=== PATIENT | female | born 1995 | race Caucasian/White ===

== ENCOUNTER → 2019-08-26 11:56 | Outpatient (BNVA) | payer SELFPAY | PROVIDERS: Family Provider Pediatrics Adolescent Medicine; PCP Pediatrics Adolescent Medicine; Visit Provider Nurse Practitioner Family | DX: N39.0 Urinary tract infection, site not specified (principal); R11.2 Nausea with vomiting, unspecified; Z68.41 Body mass index [BMI] 40.0-44.9, adult; F17.210 Nicotine dependence, cigarettes, uncomplicated; Z71.89 Other specified counseling | CPT/HCPCS: 81000; 81025 ==

== ENCOUNTER → 2019-10-02 09:15 | Outpatient (BNVA) | payer SELFPAY | PROVIDERS: Family Provider Pediatrics Adolescent Medicine; PCP Pediatrics Adolescent Medicine; Visit Provider Nurse Practitioner Women's Health | DX: Z11.3 Encounter for screening for infections with a predominantly sexual mode of transmission (principal) | CPT/HCPCS: 87491; 87591; 87661 ==

== ENCOUNTER 2019-12-18 06:43 | Emergency (ER) | payer SELFPAY ==
[2019-12-18 06:48] VITALS: BP 115/90; PULSE 96; RESP 16; TEMP 35.7; O2SAT 100; BMI 38.9
--- NOTE | 2019-12-18 07:01 | ED_ITS ---
HPI - Nausea/Vomiting/Diarrhea General: Chief complaint: Nausea/Vomiting/Diarrhea Stated complaint: n/v/d Time Seen by Provider: 12/18/19 06:58 History of Present Illness: HPI Narrative: 24-year-old female comes in complaining of nausea and vomiting that began last night. She denies any hematochezia or melena. She did take some Imodium that seemed to help but she has not had events like this before she is not really noted anything that seems to trigger her or relieve it besides the Imodium. The diarrhea has slowed down since taking the Imodium but the nausea still persisting. She has some generalized abdominal discomfort but no severe pain. She has not noted any acholic stools or bilious vomiting. MD elicited complaint: nausea, vomiting and diarrhea Onset (ago): hour(s) Description of vomiting: watery Description of diarrhea: watery Associated nausea: Yes Associated abdominal pain: Yes Location of pain: Diffuse Radiation: diffuse Pain consistency: intermittent Severity: moderate Quality: cramping Exacerbating factors: none Relieving factors: none Associated symtoms: Reports bloating, anorexia, malaise, myalgias, nausea and weakness; Denies change in vision, chest pain, cough, diaphoresis, decreased urine output, dizziness, dysuria, epistaxis, fatigue, fecal incontinence, fevers/chills, headache(s), numbness, palpitations, rash, short of breath, syncope or tinnitus Treatment prior to arrival: immodium Review of Systems Const: Reports: malaise; Denies: fatigue or diaphoresis Eyes: Denies: change in vision ENMT: Denies: tinnitus or epistaxis Card: Denies: chest pain, palpitations or syncope Resp: Denies: dyspnea, productive cough or non-productive cough GI: Reports: nausea and bloating; Denies: fecal incontinence : Denies: dysuria Skin/Breast: Denies: rash or pruritus Neuro: Denies: headache(s) or dizziness PFSH ED PFSH: Medical History Gastroesophageal reflux disease 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--> referred to [facility] for tx Surgical History H/O wisdom tooth extraction (~09/2019) History of tonsillectomy and adenoidectomy in 3rd grade- Performed at [facility] in [place], [place] Family History Grandmother Diabetes Heart disease Maternal grandmother Grandfather Diabetes Denies family history of Colon cancer Ovarian cancer Hyperlipidemia Breast cancer Family history of thyroid problem Hypertension Uterine cancer Stroke Social History Additional social history: - Tobacco use: Current daily smoker; 1pk daily Alcohol use: Social Drug use: Denies Female Reproductive History: Date of last menstrual period: 12/04/19 Physical Exam Const: COMMON NORMALS: no acute distress GENERAL APPEARANCE: cooperative and comfortable ORIENTATION/CONSCIOUSNESS: Yes awake, Yes oriented to person, Yes oriented to place and Yes oriented to time HENMT: COMMON NORMALS: normocephalic, atraumatic and hearing grossly normal bilaterally HEAD & SCALP: normocephalic and atraumatic Eye: COMMON NORMALS: Equal, round and reactive pupils present, EOMs intact bilaterally, conjunctivae normal and no scleral icterus CONJUNCTIVA: Yes conjunctivae normal PUPIL: Yes Equal, round and reactive pupils present Neck/C-Spine: COMMON NORMALS: no JVD Resp: COMMON NORMALS: normal respiratory effort, No retractions, No use of accessory muscles and clear to auscultation bilaterally AUSCULTATION: clear to auscultation bilaterally Cardio: COMMON NORMALS: no JVD, regular rate, regular rhythm and No murmurs present (Cardio) RATE: regular rate RHYTHM: regular rhythm GI: COMMON NORMALS: Soft to palpation and No hepatosplenomegaly present AUSCULTATION: Yes normoactive bowel sounds PALPATION: Yes Soft to palpation, Yes Tenderness to palpation present (GI) (Mild diffuse tenderness), No Guarding due to palpation present (GI) and Yes No hepatosplenomegaly present Extremity: COMMON NORMALS: normal to inspection, capillary refill normal, no clubbing, cyanosis or edema, no calf tenderness and no pedal edema Neuro: SENSORIUM/ORIENTATION: Yes oriented to person, Yes oriented to place a nd Yes oriented to time Skin: COMMON NORMALS: no rashes or lesions noted GENERAL SKIN EXAM: no rashes or lesions noted Course Vital Signs: Vital signs: Vital Signs Temperature 96.3 F L 12/18/19 06:48 Pulse Rate 75 12/18/19 08:18 Respiratory Rate 16 12/18/19 08:18 Blood Pressure 145/70 12/18/19 08:18 Pulse Oximetry 100 12/18/19 08:18 MDM - Nausea/Vomiting/Diarrhea MDM Narrative: Medical decision making narrative: She is feeling better. We will go ahead and discharge her home clear liquid diet for 48 hours and advance as needed she can continue to use Imodium as needed and Zofran if has worsening or changes symptoms return. Lab Data: Labs: Lab Results 12/18/19 12/18/19 12/18/19 Range/Units 07:22 07:22 07:22 WBC 8.5 (4.0-10.0) 10^3/ uL RBC 4.59 (4.1-5.3) 10^6/u L Hgb 13.8 (11.5-15.3) g/dL Hct 42.9 (37.0-47.0) % MCV 93.5 (81-99) fL MCH 30.1 (28.0-34.0) pg MCHC 32.2 (30.0-36.0) g/dL RDW 11.9 L (12.1-15.1) % Plt Count 350 (130-400) 10^3/c mm MPV 10.1 (7.4-10.4) fL Neut % (Auto) 37.9 % Lymph % (Auto) 52.4 % [place]oughton % (Auto) 6.6 % Eos % (Auto) 2.4 % Baso % (Auto) 0.6 % Neut # (Auto) 3.22 (1.8-7.7) 10^3/u L Lymph # (Auto) 4.4 (0.8-4.8) 10^3/u L Houghton # (Auto) 0.6 (0.2-0.9) 10^3/u L Eos # (Auto) 0.2 (0.0-0.8) 10^3/u L Baso # (Auto) 0.1 (0.0-0.1) 10^3/u L Nucleated RBC % (a uto) 0 % Nucleated RBCs # 0.0 /100WBC Sodium 139 (136-145) mmol/L Potassium 4.1 (3.5-5.1) mmol/L Chloride 104 (98-107) mmol/L Carbon Dioxide 25 (22-29) mmol/L Anion Gap 14.1 (5-19) BUN 13 (6-20) mg/dL Creatinine 0.7 (0.5-0.9) mg/dL GFR Calculation 103.7 (90-130) mL/min Glucose 96 (65-115) mg/dL Calculated Osmolal ity 284 L (285-295) mOsm/k g Calcium 8.8 (8.5-10.5) mg/dL Magnesium 2.0 (1.7-2.3) mg/dL Total Bilirubin 0.8 (0.15-1.2) mg/dL AST 17 (0-32) U/L ALT 20 (0-33) U/L Alkaline Phosphata se 78 (35-105) IU/L Total Protein 7.2 (6.6-8.7) g/dL Albumin 4.0 (3.5-5.2) g/dL Globulin 3.2 (1.3-4.6) g/dL Lipase 19 (13-60) U/L HCG, Qual (Negative) Urine Color Yellow (Yellow) Urine Appearance Sl hazy (CLEAR) Urine pH 6 (5-7) Ur Specific Gravit y 1.020 (1.005-1.030) Urine Protein Neg (Negative) Urine Glucose (UA) Norm (Normal) Urine Ketones Negative (Negative) Urine Blood Neg (Negative) Urine Nitrate Negative (Negative) Urine Bilirubin Neg (NEGATIVE) Urine Urobilinogen Norm (Negative) mg/dL Ur Leukocyte Tere ase Negative (Negative) Urine RBC None (0-2) /hpf Urine WBC None (0-5) /hpf Ur Squamous Epith Cells 10-15 H (0-5) Amorphous Sediment Not Reportable Urine Bacteria Trace (NONE) 12/18/19 Range/Units 07:22 WBC (4.0-10.0) 10^3/ uL RBC (4.1-5.3) 10^6/u L Hgb (11.5-15.3) g/dL Hct (37.0-47.0) % MCV (81-99) fL MCH (28.0-34.0) pg MCHC (30.0-36.0) g/dL RDW (12.1-15.1) % Plt Count (130-400) 10^3/c mm MPV (7.4-10.4) fL Neut % (Auto) % Lymph % (Auto) % Houghton % (Auto) % Eos % (Auto) % Baso % (Auto) % Neut # (Auto) (1.8-7.7) 10^3/u L Lymph # (Auto) (0.8-4.8) 10^3/u L Houghton # (Auto) (0.2-0.9) 10^3/u L Eos # (Auto) (0.0-0.8) 10^3/u L Baso # (Auto) (0.0-0.1) 10^3/u L Nucleated RBC % (a uto) % Nucleated RBCs # /100WBC Sodium (136-145) mmol/L Potassium (3.5-5.1) mmol/L Chloride (98-107) mmol/L Carbon Dioxide (22-29) mmol/L Anion Gap (5-19) BUN (6-20) mg/dL Creatinine (0.5-0.9) mg/dL GFR Calculation (90-130) mL/min Glucose (65-115) mg/dL Calculated Osmolal ity (285-295) mOsm/k g Calcium (8.5-10.5) mg/dL Magnesium (1.7-2.3) mg/dL Total Bilirubin (0.15-1.2) mg/dL AST (0-32) U/L ALT (0-33) U/L Alkaline Phosphata se (35-105) IU/L Total Protein (6.6-8.7) g/dL Albumin (3.5-5.2) g/dL Globulin (1.3-4.6) g/dL Lipase (13-60) U/L HCG, Qual Negative (Negative) Urine Color (Yellow) Urine Appearance (CLEAR) Urine pH (5-7) Ur Specific Gravit y (1.005-1.030) Urine Protein (Negative) Urine Glucose (UA) (Normal) Urine Ketones (Negative) Urine Blood (Negative) Urine Nitrate (Negative) Urine Bilirubin (NEGATIVE) Urine Urobilinogen (Negative) mg/dL Ur Leukocyte Tere ase (Negative) Urine RBC (0-2) /hpf Urine WBC (0-5) /hpf Ur Squamous Epith Cells (0-5) Amorphous Sediment Urine Bacteria (NONE) Discharge Plan Discharge Patient Disposition: Home Clinical Impression: Gastroenteritis Condition: Stable Prescriptions: New Zofran 4 mg tablet 4 mg PO Q6H PRN (Reason: nausea and vomiting) Qty: 20 RF: 0 No Action hydrocodone-acetaminophen 7.5-325 mg tablet 1 tab PO BID PRNRF: 0 Cherie 14 mcg/24 hrs (3 yrs) 13.5 mg intrauterine device INTRAUTERI RF: 0 metronidazole 500 mg tablet 500 mg PO BID Qty: 14 RF: 0 Discharge Orders: Discharge Order (Routine); Ordered 12/18/19 Ordered By: Michael Jackson Referrals: Florencio Small Jr, MD [Primary Care Provider] - Discharge Diet: Clear Liquid Discharge Activity: Resume usual activity Activity Restrictions/Additional Instructions: Clear liquid diet x48 hours and advance to regular diet. Continue to use Imodium [id number] as needed as well as the ondansetron as needed Discharge Date/Time: 12/18/19 08:19 Coding Level of Care Code ED Glaciologist for Chg Fwd Exam Comprehensive
--- NOTE | 2019-12-18 07:02 | XR_ITS ---
WS: [id number] CHEST XRAY TECHNIQUE: Portable chest. CLINICAL INFORMATION: dyspnea/cough COMPARISON: August 14, 2011 FINDINGS: Heart: Normal cardiac silhouette. Lungs: Lungs are clear. No consolidation or pleural effusion. Bones: Normal visualized bony structures. XR/XR chest 1V portable [id number] IMPRESSION: Normal chest
--- NOTE | 2019-12-18 07:02 | ECG_ITS ---
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 Measurements Intervals [place] Rate: 87 P: 41 AK: 153 QRS: 46 QRSD: 88 T: 57 QT: 341 QTc: 412 Interpretive Statements SINUS RHYTHM POSSIBLE RIGHT VENTRICULAR CONDUCTION DELAY [RSR (QR) IN V1/V2] No previous ECG available for comparison Electronically Signed On 12-18-2019 17:09:18 CDT by Cinda Sosa M.D. [email or web address] centerOrsus Solutionskettering health miamisburgBlack Hammer Brewing/store/NU/[id number]/[id number] f
[2019-12-18 07:27] LABS: Basophils # 0.1 10^3/uL (0.0-0.1); Basophils % 0.6 %; Eosinophils # 0.2 10^3/uL (0.0-0.8); Eosinophils % 2.4 %; Hematocrit 42.9 % (37.0-47.0); Hemoglobin 13.8 g/dL (11.5-15.3); Lymphocytes # 4.4 10^3/uL (0.8-4.8); Lymphocytes % 52.4 %; Mean Corpuscular HGB Conc 32.2 g/dL (30.0-36.0); Mean Corpuscular Hemoglobin 30.1 pg (28.0-34.0); Mean Corpuscular Volume 93.5 fL (81-99); Mean Platelet Volume 10.1 fL (7.4-10.4); Monocytes # 0.6 10^3/uL (0.2-0.9); Monocytes % 6.6 %; Neutrophils # 3.22 10^3/uL (1.8-7.7); Neutrophils % 37.9 %; Nucleated Red Blood Cells % 0 %; Platelet Count 350 10^3/cmm (130-400); Red Blood Count 4.59 10^6/uL (4.1-5.3); Red Cell Distribution Width 11.9 % (12.1-15.1); White Blood Count 8.5 10^3/uL (4.0-10.0)
[2019-12-18] MEDS: sodium chloride 0.9% 1,000 ML 999 ML IV (07:30)
[2019-12-18] MEDS: ondansetron 2 mg/ML SDV 2 mL 4 MG IVP (07:30)
[2019-12-18 07:44] LABS: Alanine Aminotransferase 20 U/L (0-33); Alkaline Phosphatase 78 IU/L (35-105); Anion Gap 14.1 (5-19); Aspartate Amino Transferase 17 U/L (0-32); Blood Urea Nitrogen 13 mg/dL (6-20); Calcium 8.8 mg/dL (8.5-10.5); Carbon Dioxide 25 mmol/L (22-29); Chloride 104 mmol/L (98-107); Globulin 3.2 g/dL (1.3-4.6); Glomerular Filtration Rate 103.7 mL/min (90-130); Glucose 96 mg/dL (65-115); Lipase 19 U/L (13-60); Osmolality Calculated 284 mOsm/kg (285-295); Potassium 4.1 mmol/L (3.5-5.1); Sodium 139 mmol/L (136-145); Total Bilirubin 0.8 mg/dL (0.15-1.2); Total Protein 7.2 g/dL (6.6-8.7)
[2019-12-18 07:55] LABS: Add Urine Microscopic? YES; Bilirubin Urine Neg (NEGATIVE); Blood Urine Neg (Negative); Glucose Urine UA Norm (Normal); Ketones Urine Negative (Negative); Leukocyte Esterase Urine Negative (Negative); Nitrate Urine Negative (Negative); Protein Urine Neg (Negative); Urine Appearance SL Hazy (CLEAR); Urine Color Yellow (Yellow); Urobilinogen Urine Norm (Negative); pH Urine 6 (5-7)
[2019-12-18 07:56] LABS: Add Urine Culture? No; Bacteria Urine TRACE
[2019-12-18 07:58] LABS: HCG Qualitative Urine. Negative (Negative)
[2019-12-18 08:18] VITALS: BP 145/70; PULSE 75; RESP 16; O2SAT 100
--- NOTE | 2019-12-18 08:20 | PC.NURSE ---
Read and agree with assessment
== END 2019-12-18 08:19 | disposition home or self-care (01) ==
PROVIDERS: Emergency Provider Family Medicine; PCP Pediatrics Adolescent Medicine
DX: K52.9 Noninfective gastroenteritis and colitis, unspecified (principal); F17.210 Nicotine dependence, cigarettes, uncomplicated
CPT/HCPCS: 12345; 71045; 80053; 81001; 81025; 83690; 83735; 85025; 93005; 96361; 96374; 99283; 99284; J2405; J7030

== ENCOUNTER → 2020-01-08 10:47 | Outpatient (BNVA) | payer SELFPAY | PROVIDERS: PCP Pediatrics Adolescent Medicine; Visit Provider Nurse Practitioner Women's Health | DX: A59.9 Trichomoniasis, unspecified (principal); Z30.013 Encounter for initial prescription of injectable contraceptive | CPT/HCPCS: 81025; 87661 ==

== ENCOUNTER → 2020-03-11 14:31 | Outpatient (BNVA) | payer SELFPAY | PROVIDERS: PCP Pediatrics Adolescent Medicine; Visit Provider Nurse Practitioner Family | DX: R11.2 Nausea with vomiting, unspecified (principal); K52.9 Noninfective gastroenteritis and colitis, unspecified; R01.1 Cardiac murmur, unspecified | CPT/HCPCS: 81000; 81025 ==

== ENCOUNTER 2020-03-16 19:09 | Emergency (ER) | payer SELFPAY ==
[2020-03-16 19:18] VITALS: BP 138/92; PULSE 123; RESP 18; TEMP 37.2; O2SAT 99; BMI 40.2
[2020-03-16 20:09] VITALS: BP 144/90; PULSE 107; RESP 18; O2SAT 99
--- NOTE | 2020-03-16 20:10 | W.ED.ABDPA2 ---
HPI - Abdominal Pain General: Chief Complaint: Abdominal Pain Stated Complaint: ab pain Time Seen by Provider: 03/16/20 20:09 History of Present Illness: HPI narrative: Patient is a 24-year-old female comes to the ED with abdominal pain. Patient says symptoms started last night and woke her up in the middle the night. Pain is located in the right lower quadrant of the abdomen and it radiates to her back. She rates the pain currently a 7 out of 10 and she says putting pressure on the area helps with the pain but when she lets up it hurts. She had some nausea today but no episodes of emesis. She says she has not had a bowel movement in the last 24 to 48 hours. Denies diarrhea, constipation, fever, chills. Patient does endorse having some dysuria couple days ago but it has since resolved in the past 24 hours. Associated Symptoms: Reports change in bowel habits (Has not had a bowel movement in the past 24 to 48 hours.), dysuria (Had some dysuria couple days ago but it has since resolved.) and nausea; Denies chills, constipation, diarrhea, fever(s), hematochezia, hematuria and vomiting Related Data: Date of Last Menstrual Period: 12/04/19 Review of Systems Const: Denies: fever(s), chills or fatigue Eyes: Denies: change in vision or eye discomfort ENMT: Denies: throat pain, odynophagia, nasal discharge or nasal congestion Card: Denies: chest pain, palpitations, edema, swelling of feet/ankles, dyspnea on exertion or orthopnea Resp: Denies: dyspnea, productive cough or non-productive cough GI: Reports: abdominal pain (RLQ pain), nausea and change in bowel habits (Has not had a bowel movement in the past 24 to 48 hours.); Denies: vomiting, diarrhea, constipation or hematochezia : Reports: dysuria (Had some dysuria couple days ago but it has since resolved.); Denies: flank pain or hematuria Musc: Denies: neck pain, back pain or extremity swelling Skin/Breast: Denies: rash or new lesions Neuro: Denies: headache(s), numbness in extremities or weakness in extremities PFS ED PFSH: Medical History Gastroesophageal reflux disease 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--> referred to [facility] for tx Surgical History H/O wisdom tooth extraction (~09/2019) History of tonsillectomy and adenoidectomy in 3rd grade- Performed at [facility] in [place], [place] Family History Grandmother Diabetes Heart disease Maternal grandmother Grandfather Diabetes Denies family history of Colon cancer Ovarian cancer Hyperlipidemia Breast cancer Family history of thyroid problem Hypertension Uterine cancer Stroke Social History Additional social history: - Tobacco use: Current daily smoker; 1pk daily Alcohol use: Social Drug use: Denies Female Reproductive History: Date of last menstrual period: 12/04/19 Physical Exam Const: COMMON NORMALS: no acute distress, patient oriented x3 and alert GENERAL APPEARANCE: cooperative and comfortable HENMT: COMMON NORMALS: normocephalic HEAD & SCALP: normocephalic MOUTH: Normal oral and palatal mucosa present THROAT: posterior oropharynx normal and uvula midline Eye: COMMON NORMALS: Equal, round and reactive pupils present PUPIL: Yes Equal, round and reactive pupils present Neck/C-Spine: COMMON NORMALS: supple GENERAL: Yes normal visual inspection Resp: COMMON NORMALS: normal respiratory effort, No retractions, No use of accessory muscles and clear to auscultation bilaterally AUSCULTATION: clear to auscultation bilaterally Cardio: COMMON NORMALS: regular rate, regular rhythm, S1 normal heart sound present, S2 normal heart sound present, No gallops present (Cardio), No clicks present (Cardio), No murmurs present (Cardio) and Peripheral pulses 2+ throughout RATE: regular rate RHYTHM: regular rhythm HEART SOUNDS: S1 normal heart sound present and S2 normal heart sound present PERIPHERAL PULSES: Peripheral pulses 2+ throughout GI: COMMON NORMALS: Normal to inspection, nondistended, normoactive bowel sounds present, Soft to palpation and no masses INSPECTION: Yes central obesity PALPATION: Yes Soft to palpation and Yes Tenderness to palpation present (GI) Details: RLQ (Mild tenderness upon deep palpation right lower quadrant. She does have rebound tenderness.) : BLADDER/KIDNEY EXAM: Yes CVA tenderness on the right Back/Pelvis: GENERAL BACK: Yes CVA tenderness CVA tenderness: right Extremity: COMMON NORMALS: normal to inspection and no pedal edema Neuro: COMMON NORMALS: patient oriented x3 SENSORIUM/ORIENTATION: Yes alert GAIT: Yes Normal gait present Skin: GENERAL SKIN EXAM: dry skin Course Vital Signs: Vital signs: Vital Signs Temperature 98.5 F 03/16/20 23:04 Pulse Rate 104 H 03/16/20 23:04 Respiratory Rate 17 03/16/20 23:04 Blood Pressure 119/80 03/16/20 23:04 Pulse Oximetry 98 03/16/20 23:04 MDM - Abdominal Pain MDM Narrative: Medical decision making narrative: Patient is a 24-year-old female comes to the ED with right lower quadrant abdominal pain. Patient also says she had some dysuria couple days ago but it resolved about 24 hours ago. Patient appears in no acute distress or pain. She is right lower quadrant tenderness with some rebound tenderness in the right lower quadrant. Right CVA tenderness. White blood cell count 12.7 and the rest of CBC and CMP were unremarkable. hCG negative and lipase 15. UA shows some RBCs, WBCs and bacteria indicating UTI. CT of abdomen showed pyelonephritis of right kidney. Patient was given IV fluids, Zofran and morphine while here in the ED. Vitals stable and patient would be a good candidate for outpatient treatment. She is also given a dose of Rocephin. She was diagnosed with pyelonephritis and discharged with a prescription of levofloxacin and Zofran. Return to ED precautions given. She was told to follow-up with her PCP in 7 to 10 days for reevaluation. Patient understood agree with plan. Lab Data: Attestation: I reviewed the patient's lab results. Labs: Lab Results 03/16/20 03/16/20 03/16/20 Range/Units 19:45 20:00 20:00 WBC 12.7 H (4.0-10.0) 10^3/ uL RBC 4.62 (4.1-5.3) 10^6/u L Hgb 14.0 (11.5-15.3) g/dL Hct 42.2 (37.0-47.0) % MCV 91.3 (81-99) fL MCH 30.3 (28.0-34.0) pg MCHC 33.2 (30.0-36.0) g/dL RDW 12.4 (12.1-15.1) % Plt Count 311 (130-400) 10^3/c mm MPV 11.3 H (7.4-10.4) fL Neut % (Auto) 57.5 % Lymph % (Auto) 30.6 % Turner % (Auto) 9.6 % Eos % (Auto) 1.8 % Baso % (Auto) 0.3 % Neut # (Auto) 7.28 (1.8-7.7) 10^3/u L Lymph # (Auto) 3.9 (0.8-4.8) 10^3/u L Turner # (Auto) 1.2 H (0.2-0.9) 10^3/u L Eos # (Auto) 0.2 (0.0-0.8) 10^3/u L Baso # (Auto) 0.0 (0.0-0.1) 10^3/u L Nucleated RBC % (a uto) 0 % Nucleated RBCs # 0.0 /100WBC Sodium 139 (136-145) mmol/L Potassium 3.8 (3.5-5.1) mmol/L Chloride 103 (98-107) mmol/L Carbon Dioxide 25 (22-29) mmol/L Anion Gap 14.8 (5-19) BUN 9 (6-20) mg/dL Creatinine 0.7 (0.5-0.9) mg/dL GFR Calculation 103.7 (90-130) mL/min Glucose 94 (65-115) mg/dL Calculated Osmolal ity 286 (285-295) mOsm/k g Calcium 9.3 (8.5-10.5) mg/dL Total Bilirubin 0.5 (0.15-1.2) mg/dL AST 14 (0-32) U/L ALT 11 (0-33) U/L Alkaline Phosphata se 86 (35-105) IU/L Total Protein 7.6 (6.6-8.7) g/dL Albumin 4.0 (3.5-5.2) g/dL Globulin 3.6 (1.3-4.6) g/dL Lipase 15 (13-60) U/L HCG, Qual (Negative) Urine Color Yellow (Yellow) Urine Appearance Cloudy (CLEAR) Urine pH 5 (5-7) Ur Specific Gravit y 1.025 (1.005-1.030) Urine Protein Trace (Negative) Urine Glucose (UA) Norm (Normal) Urine Ketones 1+ H (Negative) Urine Blood Neg (Negative) Urine Nitrate Negative (Negative) Urine Bilirubin Neg (Negative) Urine Urobilinogen Norm (Negative) mg/dL Ur Leukocyte Tere ase 2+ H (Negative) Urine RBC 0-4 H (0-2) /hpf Urine WBC 5-10 H (0-5) /hpf Ur Squamous Epith Cells 10-15 H (0-5) /hpf Amorphous Sediment 1+ /hpf Urine Bacteria 1+ H (NONE) /hpf 03/16/20 Range/Units 20:00 WBC (4.0-10.0) 10^3/ uL RBC (4.1-5.3) 10^6/u L Hgb (11.5-15.3) g/dL Hct (37.0-47.0) % MCV (81-99) fL MCH (28.0-34.0) pg MCHC (30.0-36.0) g/dL RDW (12.1-15.1) % Plt Count (130-400) 10^3/c mm MPV (7.4-10.4) fL Neut % (Auto) % Lymph % (Auto) % Turner % (Auto) % Eos % (Auto) % Baso % (Auto) % Neut # (Auto) (1.8-7.7) 10^3/u L Lymph # (Auto) (0.8-4.8) 10^3/u L Turner # (Auto) (0.2-0.9) 10^3/u L Eos # (Auto) (0.0-0.8) 10^3/u L Baso # (Auto) (0.0-0.1) 10^3/u L Nucleated RBC % (a uto) % Nucleated RBCs # /100WBC Sodium (136-145) mmol/L Potassium (3.5-5.1) mmol/L Chloride (98-107) mmol/L Carbon Dioxide (22-29) mmol/L Anion Gap (5-19) BUN (6-20) mg/dL Creatinine (0.5-0.9) mg/dL GFR Calculation (90-130) mL/min Glucose (65-115) mg/dL Calculated Osmolal ity (285-295) mOsm/k g Calcium (8.5-10.5) mg/dL Total Bilirubin (0.15-1.2) mg/dL AST (0-32) U/L ALT (0-33) U/L Alkaline Phosphata se (35-105) IU/L Total Protein (6.6-8.7) g/dL Albumin (3.5-5.2) g/dL Globulin (1.3-4.6) g/dL Lipase (13-60) U/L HCG, Qual Negative (Negative) Urine Color (Yellow) Urine Appearance (CLEAR) Urine pH (5-7) Ur Specific Gravit y (1.005-1.030) Urine Protein (Negative) Urine Glucose (UA) (Normal) Urine Ketones (Negative) Urine Blood (Negative) Urine Nitrate (Negative) Urine Bilirubin (Negative) Urine Urobilinogen (Negative) mg/dL Ur Leukocyte Tere ase (Negative) Urine RBC (0-2) /hpf Urine WBC (0-5) /hpf Ur Squamous Epith Cells (0-5) /hpf Amorphous Sediment /hpf Urine Bacteria (NONE) /hpf Imaging Data ^: CT Abd/Pel: Attestation: I personally reviewed and interpreted this imaging study as follows: Radiologist's impression: [address] [address] [address] Scan Report Signed Patient: Diamond Hagan Unit #: [id number] : 1995 Age/Sex: 24 / F ADM Date: 03/16/20 Loc: ER Room/Bed: Attending Dr: Ordering Provider/Ordering MD: Keven Almaraz Date of Service: 03/16/20 Procedure(s): CT abdomen pelvis w con* [id number] Accession Number(s): [id number] Report Number: [id number] PROCEDURE INFORMATION: Exam: CT Abdomen And Pelvis With Contrast Exam date and time: 03/16/2020 9:01 PM Age: 24 years old Clinical indication: Abdominal pain; Localized; Right lower quadrant (rlq); Patient HX: C/O rlq pain TECHNIQUE: Imaging protocol: Computed tomography of the abdomen and pelvis with intravenous contrast. Radiation optimization: All CT scans at this facility use at least one of these dose optimization techniques: automated exposure control; mA and/or kV adjustment per patient size (includes targeted exams where dose is matched to clinical indication); or iterative reconstruction. Contrast material: OMNI 300; Contrast volume: 95 ml; Contrast route: INTRAVENOUS (IV); COMPARISON: CT abdomen pelvis w con* [id number] 12/26/2014 2:45 PM RADIATION DOSE METRICS: Total DLP (mGy-cm): 1648.08 FINDINGS: Liver: Normal. No mass. Gallbladder and bile ducts: Normal. No calcified stones. No ductal dilation. Pancreas: Normal. No ductal dilation. Spleen: Normal. No splenomegaly. Adrenal glands: Normal. No mass. Kidneys and ureters: Mild parenchymal inhomogeneity in the posterosuperior right kidney with a 2.1 cm ill-defined hypodensity posteriorly. Mild posterior right perinephric stranding. The left kidney is normal. No hydronephrosis. Stomach and bowel: Unremarkable. No obstruction. No mucosal thickening. Appendix: The appendix is normal. Intraperitoneal space: Unremarkable. No free air. No significant fluid collection. Vasculature: Unremarkable. No abdominal aortic aneurysm. Lymph nodes: Unremarkable. No enlarged lymph nodes. Urinary bladder: Unremarkable as visualized. Reproductive: Unremarkable as visualized. Bones/joints: Mild scoliosis. No compression fracture. Soft tissues: Unremarkable. CT/CT abdomen pelvis w con* [id number] IMPRESSION: 1. Inhomogeneous regions in the superior and posterior right kidney is strongly suspicious for pyelonephritis. CT follow-up to document resolution recommended. COMMENTS: Consistent with the [employer]'s Incidental Findings Committee white paper (J Am Hailey Radiol 2018): Any incidental renal lesion less than 1 cm or classified as too small to characterize, or any incidental cystic renal lesion characterized as simple-appearing, is likely benign. No follow-up imaging is recommended for these lesions per consensus recommendations based on imaging criteria. Radiation Dose CTDIVOL = (mGy): DLP = 1648.08 (mGy-cm) Dictated By: Douglas Sánchez Signed By: Douglas Sánchez Signed Date/Time: 03/16/202129 DD/ 28 Discharge Plan Discharge Patient Disposition: Home Clinical Impression: Pyelonephritis Condition: Stable Prescriptions: New levofloxacin 750 mg tablet 750 mg PO DAILY 5 Days Qty: 5 RF: 0 Zofran 4 mg tablet 4 mg PO Q8H PRN (Reason: nausea and vomiting) Qty: 10 RF: 0 No Action medroxyprogesterone [Depo-Provera] 150 mg/mL suspension 150 mg IM .every 3 months Qty: 1 RF: 3 Discharge Orders: Discharge ED (Routine); Ordered 03/16/20 Ordered By: Keven Almaraz Referrals: Florencio Small Jr, MD [Primary Care Provider] - Discharge Diet: Regular Discharge Activity: Resume usual activity Patient Instructions: Acute Pyelonephritis (ED) Activity Restrictions/Additional Instructions: Follow-up with medical provider as directed in 7 to 10 days for reevaluation. Take medications as prescribed. Make sure to take full course of antibiotic. If you do not notice improvement after 2 to 3 days of taking antibiotic return to urgent care or ED for reevaluation. Drink plenty of fluids and stay hydrated. Return to the ER or your medical provider if condition worsens. Please read and understand discharge instructions. If any questions, please ask. Coding Level of Care Code ED Stockroom Associate for Dexter Fwaviva Exam Comprehensive
[2020-03-16 20:33] LABS: Basophils % 0.3 %; Eosinophils # 0.2 10^3/uL (0.0-0.8); Eosinophils % 1.8 %; Hematocrit 42.2 % (37.0-47.0); Lymphocytes # 3.9 10^3/uL (0.8-4.8); Lymphocytes % 30.6 %; Mean Corpuscular HGB Conc 33.2 g/dL (30.0-36.0); Mean Corpuscular Hemoglobin 30.3 pg (28.0-34.0); Mean Corpuscular Volume 91.3 fL (81-99); Mean Platelet Volume 11.3 fL (7.4-10.4); Monocytes # 1.2 10^3/uL (0.2-0.9); Monocytes % 9.6 %; Neutrophils # 7.28 10^3/uL (1.8-7.7); Neutrophils % 57.5 %; Nucleated Red Blood Cells % 0 %; Platelet Count 311 10^3/cmm (130-400); Red Blood Count 4.62 10^6/uL (4.1-5.3); Red Cell Distribution Width 12.4 % (12.1-15.1); White Blood Count 12.7 10^3/uL (4.0-10.0)
--- NOTE | 2020-03-16 20:33 | CTR_ITS ---
PROCEDURE INFORMATION: Exam: CT Abdomen And Pelvis With Contrast Exam date and time: 03/16/2020 9:01 PM Age: 24 years old Clinical indication: Abdominal pain; Localized; Right lower quadrant (rlq); Patient HX: C/O rlq pain TECHNIQUE: Imaging protocol: Computed tomography of the abdomen and pelvis with intravenous contrast. Radiation optimization: All CT scans at this facility use at least one of these dose optimization techniques: automated exposure control; mA and/or kV adjustment per patient size (includes targeted exams where dose is matched to clinical indication); or iterative reconstruction. Contrast material: OMNI 300; Contrast volume: 95 ml; Contrast route: INTRAVENOUS (IV); COMPARISON: CT abdomen pelvis w con* [id number] 12/26/2014 2:45 PM RADIATION DOSE METRICS: Total DLP (mGy-cm): 1648.08 FINDINGS: Liver: Normal. No mass. Gallbladder and bile ducts: Normal. No calcified stones. No ductal dilation. Pancreas: Normal. No ductal dilation. Spleen: Normal. No splenomegaly. Adrenal glands: Normal. No mass. Kidneys and ureters: Mild parenchymal inhomogeneity in the posterosuperior right kidney with a 2.1 cm ill-defined hypodensity posteriorly. Mild posterior right perinephric stranding. The left kidney is normal. No hydronephrosis. Stomach and bowel: Unremarkable. No obstruction. No mucosal thickening. Appendix: The appendix is normal. Intraperitoneal space: Unremarkable. No free air. No significant fluid collection. Vasculature: Unremarkable. No abdominal aortic aneurysm. Lymph nodes: Unremarkable. No enlarged lymph nodes. Urinary bladder: Unremarkable as visualized. Reproductive: Unremarkable as visualized. Bones/joints: Mild scoliosis. No compression fracture. Soft tissues: Unremarkable. CT/CT abdomen pelvis w con* [id number] IMPRESSION: 1. Inhomogeneous regions in the superior and posterior right kidney is strongly suspicious for pyelonephritis. CT follow-up to document resolution recommended. COMMENTS: Consistent with the [place] [employer]'s Incidental Findings Committee white paper (J Am Hailey Radiol 2018): Any incidental renal lesion less than 1 cm or classified as too small to characterize, or any incidental cystic renal lesion characterized as simple-appearing, is likely benign. No follow-up imaging is recommended for these lesions per consensus recommendations based on imaging criteria. Radiation Dose CTDIVOL = (mGy): DLP = 1648.08 (mGy-cm)
[2020-03-16] MEDS: ondansetron 2 mg/ML SDV 2 mL 4 MG IVP (20:48)
[2020-03-16 20:50] VITALS: RESP 16; O2SAT 97
[2020-03-16] MEDS: morphine 4 mg/mL SDV 1 mL IVP (20:50)
[2020-03-16] MEDS: sodium chloride 0.9% 1,000 ML 999 ML IV (20:51)
[2020-03-16 20:59] LABS: HCG, Serum Qual Negative (Negative)
[2020-03-16 21:00] LABS: Alanine Aminotransferase 11 U/L (0-33); Alkaline Phosphatase 86 IU/L (35-105); Anion Gap 14.8 (5-19); Aspartate Amino Transferase 14 U/L (0-32); Blood Urea Nitrogen 9 mg/dL (6-20); Calcium 9.3 mg/dL (8.5-10.5); Carbon Dioxide 25 mmol/L (22-29); Chloride 103 mmol/L (98-107); Globulin 3.6 g/dL (1.3-4.6); Glomerular Filtration Rate 103.7 mL/min (90-130); Glucose 94 mg/dL (65-115); Lipase 15 U/L (13-60); Osmolality Calculated 286 mOsm/kg (285-295); Potassium 3.8 mmol/L (3.5-5.1); Sodium 139 mmol/L (136-145); Total Bilirubin 0.5 mg/dL (0.15-1.2); Total Protein 7.6 g/dL (6.6-8.7)
[2020-03-16 21:13] VITALS: BP 149/94; PULSE 104; RESP 18; O2SAT 99
[2020-03-16] MEDS: iohexol 300 mg/mL 100 mL Btl IV (21:17)
[2020-03-16 21:41] LABS: Glucose Urine UA Norm (Normal); Ketones Urine 1+ (Negative); Protein Urine Trace (Negative); Specific Gravity, Urine 1.025 (1.005-1.030); Urine Appearance Cloudy (CLEAR); Urine Color Yellow (Yellow); pH Urine 5 (5-7)
[2020-03-16 21:42] LABS: Bilirubin Urine Neg (Negative); Blood Urine Neg (Negative); Leukocyte Esterase Urine 2+ (Negative); Nitrate Urine Negative (Negative); Urobilinogen Urine Norm (Negative)
[2020-03-16 21:50] LABS: Add Urine Culture? No; Amorphous Sediment Urine 1+ /hpf; Bacteria Urine 1+ /hpf; RBC Urine 0-4 /hpf (0-2)
[2020-03-16] MEDS: cefTRIAXone 1,000 MG in sodium chloride 0.9% (plus) 50 ML 100 MG IV (22:35)
[2020-03-16 23:04] VITALS: BP 119/80; PULSE 104; RESP 17; TEMP 36.9; O2SAT 98
== END 2020-03-16 23:00 | disposition home or self-care (01) ==
PROVIDERS: Emergency Provider Physician Assistant; PCP Pediatrics Adolescent Medicine
DX: N12 Tubulo-interstitial nephritis, not specified as acute or chronic (principal); F17.210 Nicotine dependence, cigarettes, uncomplicated
CPT/HCPCS: 12345; 74177; 80053; 81001; 83690; 84703; 85025; 87040; 96365; 96375; 99282; 99283; J0696; J2270; J2405; J7030; Q9967

== ENCOUNTER 2020-09-17 02:42 | Observation (INO) | payer MEDICAID, SELFPAY ==
[2020-09-17] VITALS (22 sets, daily range): BP systolic 101–159; BP diastolic 68–111; PULSE 63–102; RESP 15–22; TEMP 36.4–36.8; O2SAT 95–100; BMI 42.0
--- NOTE | 2020-09-17 02:54 | W.ED.ABDPA2 ---
HPI - Abdominal Pain General: Chief Complaint: Abdominal Pain Stated Complaint: Upper ABD pain Time Seen by Provider: 09/17/20 02:48 Source: patient Mode of arrival: ambulatory Limitations: no limitations History of Present Illness: HPI narrative: 25-year-old female states she been having abdominal pain off and on for over a year. She states that it seems to happen after she eats. States she ate tonight started having the pain at 7. States the pain is much worse tonight than typical has not went away. She states that the right upper quadrant and epigastric and rates it a 9 out of 10. She states it radiates to her back. She has had nausea and vomiting tonight as well. Denies any fevers. She has no previous surgical history on her abdomen. MD elicited complaint: abdominal pain Associated Symptoms: Reports nausea and vomiting; Denies chills, dysuria and fever(s) Related Data: Date of Last Menstrual Period: 08/22/20 Review of Systems Const: Denies: fever(s), chills, body aches or change in appetite Eyes: Denies: blurry vision or eye discomfort ENMT: Denies: throat pain or dental pain Card: Denies: chest pain Resp: Denies: dyspnea GI: Reports: abdominal pain, nausea and vomiting : Denies: dysuria Musc: Denies: neck pain or back pain Skin/Breast: Denies: rash Neuro: Denies: headache(s) Psych: Denies: depression Caio/Lymph: Denies: easy bruising All/Imm: Denies: urticaria PFSH ED PFSH: Medical History (Updated 09/17/20 @ 05:44 by Justin Christine MD) Gastroesophageal reflux disease 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 for tx Surgical History H/O wisdom tooth extraction (~09/2019) History of tonsillectomy and adenoidectomy in 3rd grade- Performed at [facility] in [place], [place] Family History Grandmother Diabetes Heart disease Maternal grandmother Grandfather Diabetes Denies family history of Colon cancer Ovarian cancer Hyperlipidemia Breast cancer Family history of thyroid problem Hypertension Uterine cancer Stroke Social History Additional social history: - Tobacco use: Current daily smoker; 1pk daily Alcohol use: Social Drug use: Denies Female Reproductive History: Date of last menstrual period: 08/22/20 Physical Exam Const: COMMON NORMALS: no acute distress, patient oriented x3 and healthy appearing HENMT: COMMON NORMALS: normocephalic and atraumatic HEAD & SCALP: normocephalic and atraumatic Eye: COMMON NORMALS: Equal, round and reactive pupils present and EOMs intact bilaterally PUPIL: Yes Equal, round and reactive pupils present Neck/C-Spine: COMMON NORMALS: full ROM and supple Chest: COMMONS NORMALS: normal inspection of the chest and normal palpation of entire chest wall Resp: COMMON NORMALS: normal respiratory effort, No retractions, No use of accessory muscles and clear to auscultation bilaterally AUSCULTATION: clear to auscultation bilaterally Cardio: COMMON NORMALS: regular rate, regular rhythm and No murmurs present (Cardio) RATE: regular rate RHYTHM: regular rhythm GI: COMMON NORMALS: Normal to inspection, nondistended, normoactive bowel sounds present, Soft to palpation and no masses PALPATION: Yes Soft to palpation and Yes Tenderness to palpation present (GI) (ruq and epigastric tenderness) Extremity: COMMON NORMALS: normal to inspection and full ROM Neuro: COMMON NORMALS: patient oriented x3, moves all extremities and no focal motor deficits Psych: COMMON NORMALS: mental status grossly normal, Normal thought process present and cooperative THOUGHT PROCESS: Normal thought process present Skin: COMMON NORMALS: no rashes or lesions noted and no wounds GENERAL SKIN EXAM: no rashes or lesions noted Course Vital Signs: Vital signs: Vital Signs Temperature 97.7 F 09/17/20 02:48 Pulse Rate 72 09/17/20 05:00 Respiratory Rate 16 09/17/20 05:00 Blood Pressure 142/90 09/17/20 05:00 Pulse Oximetry 97 09/17/20 05:00 MDM - Abdominal Pain MDM Narrative: Medical decision making narrative: Patient presents with abdominal pain with ultrasound finding consistent with cholecystitis. Her pain here has improved but still is having some slight pain. She does have large amount cholelithiasis as well. She has no signs of choledocholithiasis. Spoke to surgeon on-call Dr. Marin and will admit for plans of surgery. Lab Data: Labs: Lab Results 09/17/20 09/17/20 09/17/20 Range/Units 03:05 03:05 03:05 WBC 14.0 H (4.0-10.0) 10^3/ uL RBC 4.65 (4.1-5.3) 10^6/u L Hgb 14.1 (11.5-15.3) g/dL Hct 42.0 (37.0-47.0) % MCV 90.3 (81-99) fL MCH 30.3 (28.0-34.0) pg MCHC 33.6 (30.0-36.0) g/dL RDW 12.5 (12.1-15.1) % Plt Count 334 (130-400) 10^3/c mm MPV 10.5 H (7.4-10.4) fL Neut % (Auto) 44.1 % Lymph % (Auto) 46.6 % [place] % (Auto) 6.9 % Eos % (Auto) 1.7 % Baso % (Auto) 0.4 % Neut # (Auto) 6.15 (1.8-7.7) 10^3/u L Lymph # (Auto) 6.5 H (0.8-4.8) 10^3/u L [place] # (Auto) 1.0 H (0.2-0.9) 10^3/u L Eos # (Auto) 0.2 (0.0-0.8) 10^3/u L Baso # (Auto) 0.1 (0.0-0.1) 10^3/u L Nucleated RBC % (a uto) 0 % Nucleated RBCs # 0.0 /100WBC Sodium 138 (136-145) mmol/L Potassium 3.7 (3.5-5.1) mmol/L Chloride 100 (98-107) mmol/L Carbon Dioxide 28 (22-29) mmol/L Anion Gap 13.7 (5-19) BUN 9 (6-20) mg/dL Creatinine 0.7 (0.5-0.9) mg/dL GFR Calculation 102.8 (90-130) mL/min Glucose 117 H (65-115) mg/dL Calculated Osmolal ity 286 (285-295) mOsm/k g Calcium 8.7 (8.5-10.5) mg/dL Total Bilirubin 0.3 (0.15-1.2) mg/dL AST 20 (0-32) U/L ALT 22 (0-33) U/L Alkaline Phosphata se 84 (35-105) IU/L Total Protein 6.6 (6.6-8.7) g/dL Albumin 4.0 (3.5-5.2) g/dL Globulin 2.6 (1.3-4.6) g/dL Lipase 15 (13-60) U/L HCG, Qual Negative (Negative) Urine Color (Yellow) Urine Appearance (CLEAR) Urine pH (5-7) Ur Specific Gravit y (1.005-1.030) Urine Protein (Negative) Urine Glucose (UA) (Normal) Urine Ketones (Negative) Urine Blood (Negative) Urine Nitrate (Negative) Urine Bilirubin (Negative) Urine Urobilinogen (Negative) mg/dL Ur Leukocyte Tere ase (Negative) Urine RBC (0-2) /hpf Urine WBC (0-5) /hpf Ur Squamous Epith Cells (0-5) /hpf Amorphous Sediment Urine Bacteria (NONE) /hpf 09/17/20 Range/Units 03:05 WBC (4.0-10.0) 10^3/ uL RBC (4.1-5.3) 10^6/u L Hgb (11.5-15.3) g/dL Hct (37.0-47.0) % MCV (81-99) fL MCH (28.0-34.0) pg MCHC (30.0-36.0) g/dL RDW (12.1-15.1) % Plt Count (130-400) 10^3/c mm MPV (7.4-10.4) fL Neut % (Auto) % Lymph % (Auto) % [place] % (Auto) % Eos % (Auto) % Baso % (Auto) % Neut # (Auto) (1.8-7.7) 10^3/u L Lymph # (Auto) (0.8-4.8) 10^3/u L [place] # (Auto) (0.2-0.9) 10^3/u L Eos # (Auto) (0.0-0.8) 10^3/u L Baso # (Auto) (0.0-0.1) 10^3/u L Nucleated RBC % (a uto) % Nucleated RBCs # /100WBC Sodium (136-145) mmol/L Potassium (3.5-5.1) mmol/L Chloride (98-107) mmol/L Carbon Dioxide (22-29) mmol/L Anion Gap (5-19) BUN (6-20) mg/dL Creatinine (0.5-0.9) mg/dL GFR Calculation (90-130) mL/min Glucose (65-115) mg/dL Calculated Osmolal ity (285-295) mOsm/k g Calcium (8.5-10.5) mg/dL Total Bilirubin (0.15-1.2) mg/dL AST (0-32) U/L ALT (0-33) U/L Alkaline Phosphata se (35-105) IU/L Total Protein (6.6-8.7) g/dL Albumin (3.5-5.2) g/dL Globulin (1.3-4.6) g/dL Lipase (13-60) U/L HCG, Qual (Negative) Urine Color Yellow (Yellow) Urine Appearance Hazy A (CLEAR) Urine pH 7 (5-7) Ur Specific Gravit y 1.010 (1.005-1.030) Urine Protein Neg (Negative) Urine Glucose (UA) Norm (Normal) Urine Ketones Negative (Negative) Urine Blood Neg (Negative) Urine Nitrate Negative (Negative) Urine Bilirubin Neg (Negative) Urine Urobilinogen Norm (Negative) mg/dL Ur Leukocyte Tere ase 2+ H (Negative) Urine RBC 0-4 H (0-2) /hpf Urine WBC >100 H (0-5) /hpf Ur Squamous Epith Cells 0-4 H (0-5) /hpf Amorphous Sediment Not Reportable Urine Bacteria 2+ H (NONE) /hpf Imaging Data ^: CT Abd/Pel: Attestation: I personally reviewed and interpreted this imaging study as follows: Radiologist's impression: [address] [place] [address] CT Scan Report Signed Patient: Diamond Hagan Unit #: [id number] : 1995 Age/Sex: 25 / F ADM Date: 09/17/20 Loc: ER Room/Bed: Attending Dr: Ordering Provider/Ordering MD: Justin Christine MD Date of Service: 09/17/20 Procedure(s): CT abdomen pelvis w con* [id number] Accession Number(s): [id number] Report Number: [id number] PROCEDURE INFORMATION: Exam: CT Abdomen And Pelvis With Contrast Exam date and time: 09/17/2020 2:56 AM Age: 25 years old Clinical indication: Abdominal pain; Patient HX: Epigastric pain; Additional info: Abd pain TECHNIQUE: Imaging protocol: Computed tomography of the abdomen and pelvis with contrast. Radiation optimization: All CT scans at this facility use at least one of these dose optimization techniques: automated exposure control; mA and/or kV adjustment per patient size (includes targeted exams where dose is matched to clinical indication); or iterative reconstruction. Contrast material: OMNI 300; Contrast volume: 95 ml; Contrast route: INTRAVENOUS (IV); COMPARISON: CT abdomen pelvis w con* [id number] 03/16/2020 9:00 PM RADIATION DOSE METRICS: Total DLP (mGy-cm): 1981.38 FINDINGS: Liver: Normal. No mass. Gallbladder and bile ducts: Cholelithiasis noted. Gallbladder wall thickening or edema also suggested. Pancreas: Normal. No ductal dilation. Spleen: Normal. No splenomegaly. Adrenal glands: Normal. No mass. Kidneys and ureters: Normal. No hydronephrosis. Stomach and bowel: Unremarkable. No obstruction. No mucosal thickening. Appendix: No evidence of appendicitis. Intraperitoneal space: Unremarkable. No free air. No significant fluid collection. Vasculature: Unremarkable. No abdominal aortic aneurysm. Lymph nodes: Unremarkable. No enlarged lymph nodes. Urinary bladder: Unremarkable as visualized. Reproductive: Unremarkable as visualized. Bones/joints: No acute fracture. Soft tissues: Unremarkable. CT/CT abdomen pelvis w con* [id number] IMPRESSION: Cholelithiasis with suggestion of mild gallbladder wall thickening or edema which can represent mild or early inflammatory change . Radiation Dose CTDIVOL = (mGy): DLP = 1981.38 (mGy-cm) Discharge Plan Discharge Patient Disposition: Admitted As Inpatient Clinical Impression: Cholecystitis Condition: Stable Coding Level of Care Code ED Automatic Winder Operator for Chg Fwd Exam Comprehensive
[2020-09-17] MEDS: lidocaine 2% viscous 15 ML, aluminum-mag hydrox-simethicon 30 ML, sucralfate oral liq 1 GM PO (03:00)
[2020-09-17] MEDS: ondansetron 2 mg/ML SDV 2 mL 4 MG IVP (03:01)
[2020-09-17 03:21] LABS: Basophils # 0.1 10^3/uL (0.0-0.1); Basophils % 0.4 %; Eosinophils # 0.2 10^3/uL (0.0-0.8); Eosinophils % 1.7 %; Hemoglobin 14.1 g/dL (11.5-15.3); Lymphocytes # 6.5 10^3/uL (0.8-4.8); Lymphocytes % 46.6 %; Mean Corpuscular HGB Conc 33.6 g/dL (30.0-36.0); Mean Corpuscular Hemoglobin 30.3 pg (28.0-34.0); Mean Corpuscular Volume 90.3 fL (81-99); Mean Platelet Volume 10.5 fL (7.4-10.4); Monocytes % 6.9 %; Neutrophils # 6.15 10^3/uL (1.8-7.7); Neutrophils % 44.1 %; Nucleated Red Blood Cells % 0 %; Platelet Count 334 10^3/cmm (130-400); Red Blood Count 4.65 10^6/uL (4.1-5.3); Red Cell Distribution Width 12.5 % (12.1-15.1)
[2020-09-17 03:32] LABS: HCG, Serum Qual Negative (Negative)
[2020-09-17 03:34] LABS: Bilirubin Urine Neg (Negative); Blood Urine Neg (Negative); Glucose Urine UA Norm (Normal); Ketones Urine Negative (Negative); Nitrate Urine Negative (Negative); Protein Urine Neg (Negative); Urine Appearance Hazy (CLEAR); Urine Color Yellow (Yellow); Urobilinogen Urine Norm (Negative); pH Urine 7 (5-7)
[2020-09-17 03:35] LABS: Add Urine Culture? Yes; Add Urine Microscopic? YES; Bacteria Urine 2+ /hpf; Leukocyte Esterase Urine 2+ (Negative); RBC Urine 0-4 /hpf (0-2); Squamous Epithelial Cell Urine 0-4 /hpf (0-5); WBC Urine >100 /hpf (0-5)
[2020-09-17] MEDS: iohexol 300 mg/mL 100 mL Btl IV (03:38)
[2020-09-17 03:41] LABS: Alanine Aminotransferase 22 U/L (0-33); Alkaline Phosphatase 84 IU/L (35-105); Aspartate Amino Transferase 20 U/L (0-32); Blood Urea Nitrogen 9 mg/dL (6-20); Calcium 8.7 mg/dL (8.5-10.5); Carbon Dioxide 28 mmol/L (22-29); Chloride 100 mmol/L (98-107); Globulin 2.6 g/dL (1.3-4.6); Glomerular Filtration Rate 102.8 mL/min (90-130); Glucose 117 mg/dL (65-115); Lipase 15 U/L (13-60); Osmolality Calculated 286 mOsm/kg (285-295); Sodium 138 mmol/L (136-145); Total Bilirubin 0.3 mg/dL (0.15-1.2); Total Protein 6.6 g/dL (6.6-8.7)
[2020-09-17 03:43] LABS: Anion Gap 13.7 (5-19); Potassium 3.7 mmol/L (3.5-5.1)
[2020-09-17] MEDS: cefTRIAXone 1,000 MG in sodium chloride 0.9% (plus) 50 ML 100 MG IV (04:00)
[2020-09-17] MEDS: morphine 4 mg/mL SDV 1 mL IVP (04:06)
--- NOTE | 2020-09-17 04:31 | USR_ITS ---
PROCEDURE INFORMATION: Exam: US Abdomen, Limited; Right Upper Quadrant Exam date and time: 09/17/2020 5:00 AM Age: 25 years old Clinical indication: Abdominal pain; Acute; Patient HX: Pain off and on last year. Tonight pain much worse. ; Additional info: Abd pain TECHNIQUE: Imaging protocol: US abdomen. Real time ultrasound with image documentation. Limited exam focused on the right upper quadrant. COMPARISON: CT abdomen pelvis w con* [id number] 09/17/2020 3:35 AM FINDINGS: Liver: Essentially unremarkable liver, no focal abnormality. Gallbladder: Several shadowing gallstones visible within the gallbladder. Mild gallbladder wall thickening, measuring up to 4.6 mm. No definite pericholecystic fluid. The gallbladder appears upper normal/mildly prominent in size, transverse diameter about 4 cm. Technologist states patient was tender over the gallbladder region during scanning. Common bile duct: Borderline/mild biliary tree prominence, with common duct measuring up to about 5-6 mm. No visible common duct stone by ultrasound. Significance uncertain. Correlation with laboratory/bilirubin levels may be helpful to determine if there is any significant biliary obstruction. Pancreas: Visible pancreas unremarkable. Right kidney: Images of the right kidney show no hydronephrosis. US/US gall bladder [id number] IMPRESSION: 1. Cholelithiasis, see additional details above. 2. Borderline/mild biliary tree prominence, See above discussion 3. Other findings discussed above.
--- NOTE | 2020-09-17 04:44 | PC.PHAR ---
pt states she takes care of her own medications-pt states she hasnt taken her medroxyprogesterone shot in almost a year-ext med history shows last filled on 01/08/20 90d/s-pt states she has just been taking tylenol and ibuprofen prn
[2020-09-17] MEDS: sodium chloride 0.9% 1,000 ML 100 ML IV (07:39)
--- NOTE | 2020-09-17 08:37 | PC.NURSE ---
Bed bath and linens change The patient was asked about bed bath and linens change. The patient refused the bed bath because she was just admitted and didn't want one.
--- NOTE | 2020-09-17 09:03 | PM.HP ---
Providers/Chief Complaint Admitting Physician: Frederick Marin MD Primary Care Provider: Florencio Small Jr, MD Chief Complaint: Upper ABD pain History of Present Illness Diamond Hagan is a 25 year old female who developed epigastric abdominal pain last night after eating bratwurst and macaroni and cheese. She developed multiple episodes of vomiting but denies any obvious evidence of hematemesis. She denies fevers and chills. The pain persisted into the night and so came to the emergency room and imaging and laboratory studies revealed changes consistent with acute calculus cholecystitis. Her LFTs were normal. She actually started feeling much better after receiving some pain medication in the emergency department and said her pain went down to a 1/10, but elected to come into the hospital to get this taken care of. She was brought into the hospital under observation for further management. She says her pain remains very mild at the present time. The patient says that she has had similar episodes to this, although not this bad, over the past year. She said it has gotten to the point where pretty much anything she eats tends to cause pain, but there is no rhyme or reason as to whether it is going to be particularly bad or not. Review of Systems General: Reports: 10 or more systems reviewed and unremarkable except in HPI and below Const: Denies: fever(s) Resp: Denies: dyspnea GI: Reports: abdominal pain, nausea and vomiting; Denies: change in bowel habits Medications/Allergies Home Medications Medication Instructions Recorded Confirmed Last Taken Type albuterol sulfate 90 mcg/actuation 2 puff INHALATION Q6H PRN 10 Days 08/18/20 09/17/20 Unknown Rx aerosol inhaler #6.7 g acetaminophen [Tylenol Extra 1,000 mg PO PRN 09/17/20 09/17/20 09/16/20 History Strength] ciprofloxacin HCl [Cipro] 500 mg PO BID #14 tab 09/17/20 Unknown Rx hydrocodone-acetaminophen 1 tab PO Q6H PRN #14 tab 09/17/20 Unknown Rx ibuprofen 400 mg PO PRN 09/17/20 09/17/20 09/16/20 22:00 History ondansetron 4 mg PO Q6H PRN #14 tab 09/17/20 Unknown Rx Allergies Allergy/AdvReac Type Severity Reaction Status Date / Time No Known Allergies Allergy Verified 09/17/20 04:11 PFSH Acute PFSH: Medical History (Updated 09/17/20 @ 09:12 by Frederick Marin MD) Gastroesophageal reflux disease 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--> referred to [facility] for tx Trichomonas infection Surgical History (Updated 09/17/20 @ 09:06 by Frederick Marin MD) H/O wisdom tooth extraction (~09/2019) History of tonsillectomy and adenoidectomy Family History Grandmother Diabetes Heart disease Maternal grandmother Grandfather Diabetes Denies family history of Colon cancer Ovarian cancer Hyperlipidemia Breast cancer Family history of thyroid problem Hypertension Uterine cancer Stroke Social History (Updated 09/17/20 @ 09:12 by Frederick Marin MD) Smoking and tobacco status: current every day smoker cigarettes Packs smoked per day: 1 Years cigarettes smoked: 3 Alcohol intake: current Alcohol use comment: weekends Additional social history: - Tobacco use: Current daily smoker; 1pk daily Alcohol use: Social Drug use: Denies Female Reproductive History: Date of last menstrual period: 08/22/20 Vitals/I&O/Wt Last Vital Signs Temp 97.9 F 09/17/20 07:31 Pulse 82 09/17/20 07:31 Resp 16 09/17/20 07:31 BP 125/87 09/17/20 07:31 Pulse Ox 97 09/17/20 07:31 09/16/20 09/17/20 09/17/20 22:59 06:59 14:59 Intake Total 50 / 50 Balance 50 / 50 Weight last 48 hrs Weight 230 lb Physical Exam Narrative: EXAM NARRATIVE: The patient was encountered in her hospital room. She does not appear to be in any acute distress. The pupils are equal. No carotid bruits are heard. The lungs are clear anteriorly. The heart is regular. The abdomen is moderately obese but is soft and she does have some bowel sounds. She does have mild tenderness in the epigastrium and moderate tenderness in the right upper quadrant with an equivocal Gutiérrez's sign. No obvious masses are palpated. She does appear to perhaps have a small umbilical hernia superiorly into the right side of the base of the umbilicus. The extremities reveal no edema. Neurologically the patient is grossly intact. Data : 09/17/20 03:05 09/17/20 03:05 Other Labs: Laboratory Tests 09/17/20 09/17/20 03:05 03:05 Total Bilirubin 0.3 AST 20 ALT 22 Alkaline Phosphatase 84 Lipase 15 HCG, Qual Negative CT Abd/Pel: Radiologist's impression: CT abdomen/pelvis 09/17/2020 IMPRESSION: Cholelithiasis with suggestion of mild gallbladder wall thickening or edema which can represent mild or early inflammatory change . US: Radiologist's impression: Gallbladder ultrasound 09/17/2020 IMPRESSION: 1. Cholelithiasis, see additional details above. 2. Borderline/mild biliary tree prominence A&P Assessment and plan (1) Acute cholecystitis due to biliary calculus: The patient has been having symptoms of biliary colic for about a year. Last night was perhaps the worst episode that she has ever had. We discussed gallbladder disease and gallbladder surgery in some detail. Surgical risks of bleeding, infection, internal organ injury, chances of an open procedure, etc. were all discussed. The patient seems to understand and would like to proceed with a cholecystectomy. The patient has been n.p.o. since last night. I am going to make arrangements for a laparoscopic or possibly open cholecystectomy today. The patient is hoping that if there are no contraindications, she may be able to go home later today. Status: Acute Attestations Medical Necessity Statement*: Based on my medical assessment, presenting symptoms and consideration of the scope of surgical therapy, I expect this patient will require treatment in the hospital for a period of time spanning less than 2 midnights, and is therefore being placed in observation status. Coding Level of Care Code Acute Husker Operator for Dexter Truong Diagnoses Acute cholecystitis due to biliary calculus K80.00
--- NOTE | 2020-09-17 09:31 | DCPLANNER ---
Patient had message to refer patient to Dr. Marin, patient was admitted to hospital was seen by Dr. Marin.
--- NOTE | 2020-09-17 10:15 | PC.CHAP ---
Pastoral Care Encounter/Spiritual Assessment Type of Contact [] Declined acidizer water well visit [] Patient/Family/Request visit [] Outpatient visit [] Follow-up visit [] Physician referral [] Code/Alert [x] Routine visit [] Staff referral [] Actively dying [] Patient sleeping [] Family support [] [] Out of room [] Palliative care [] [] Receiving care in room [] Pre-surgical visit [] Trauma [] Long length of stay [] ICU visit [] Other: Relational/Emotional Strength [x] Patient feels connected with others/family/visitors/staff [] Distress [] Loneliness/isolation [] Abandonment Spirituality of Patient [x] Person of [place] [x] Attends Yazidism of their [place] [x] Believes in Prayer [] Reads Bible or Jewish materials [] There are Spiritual issues to be addressed [address] Service Interventions [x] Prayer [] Active listening [] Non-anxious presence [] Spiritual/emotional support [] Crisis/trauma care [] Spiritual counseling [] Bereavement support [] Provided bereavement packet [] Provided Bible/devotional materials [] Provided toy/stuffed animal, coloring book to patient or family member [] Provided Communion [] Anointing/[place] [] Salvation [] Completed spiritual assessment [] Other: Impact on Illness or Injury [] Angry [] Fearful [] Anxious [] Often cries [] Exhaustion [] Unable to work [] Unable to attend rastafari [] Unable to walk/stand [] Unable to read [] Unable to drive [] Unable to eat/drink [] Unable to sleep [] Unable to be with family [] Patient intubated [] Other: Summary Time spent with patient 10 min
--- NOTE | 2020-09-17 12:26 | ANES.PREANE2 ---
Pre-Anesthetic Assessment Pre-Anesthetic Assessment: Height/Weight: Height 1.57 m Weight 104.326 kg Temp Pulse Resp BP Pulse Ox 98.3 F 77 16 137/82 99 09/17/20 11:34 09/17/20 11:34 09/17/20 11:34 09/17/20 11:34 09/17/20 11:34 Preop Diagnosis: Cholecystitis Proposed Procedure: Operation Date: 09/17/20 12:00 Proposed Procedures p Laparoscopic Cholecystectomy(Not Applicable) - Frederick Marin MD Familial anesthetic complications: none Was Beta Khoa taken within 24 hours: N/A Was Clonidine taken within 24 hours: N/A Last intake: Intake 09/17/20 at 0200 Last Liquid Date 09/16/20 Last Liquid Time 21:00 Last Solid Date 09/16/20 Last Solid Time 20:00 Social: Social History: Alcohol and Tobacco Comment: up to 4 to 6 shots on the weekend Exam: Pre-Anes Outpt Exam: alert, oriented x 3, clear to auscultation bilaterally and regular rate & rhythm Airway: Cervical ROM: WNL MP: 3 Dentition: Full Metabolic: Metabolic: Morbid obesity Anesthetic Plan: ASA status: 2 Anesthesia: General Risk of > 500 ml blood loss (7ml/kg in children): No Meds/Allergies Current Medications: Current Medications Generic Name Dose Route Start Last Admin Trade Name Freq PRN Reason Stop Dose Admin Sodium Chloride 1,000 mls @ 100 m ls/hr 09/17/20 06:24 09/17/20 07:39 Sodium Chloride 0.9% IV 100 mls/hr .Q10H CASSIA Administration PFSH Anesthesia PFSH: Medical History (Updated 09/17/20 @ 09:12 by Frederick Marin MD) Gastroesophageal reflux disease 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--> referred to [facility] for tx Trichomonas infection Surgical History (Updated 09/17/20 @ 09:06 by Frederick Marin MD) H/O wisdom tooth extraction (~09/2019) History of tonsillectomy and adenoidectomy Family History Grandmother Diabetes Heart disease Maternal grandmother Grandfather Diabetes Denies family history of Colon cancer Ovarian cancer Hyperlipidemia Breast cancer Family history of thyroid problem Hypertension Uterine cancer Stroke Social History (Updated 09/17/20 @ 09:12 by Frederick Marin MD) Smoking and tobacco status: current every day smoker cigarettes Packs smoked per day: 1 Years cigarettes smoked: 3 Alcohol intake: current Alcohol use comment: weekends Additional social history: - Tobacco use: Current daily smoker; 1pk daily Alcohol use: Social Drug use: Denies Female Reproductive History: Date of last menstrual period: 08/22/20 Data Anesthesia CBC & Chem 7: 09/17/20 03:05 09/17/20 03:05 Other Labs: Laboratory Results - last 48 hr 09/17/20 09/17/20 09/17/20 03:05 03:05 03:05 WBC 14.0 H RBC 4.65 Hgb 14.1 Hct 42.0 MCV 90.3 MCH 30.3 MCHC 33.6 RDW 12.5 Plt Count 334 MPV 10.5 H Neut % (Auto) 44.1 Lymph % (Auto) 46.6 [place] % (Auto) 6.9 Eos % (Auto) 1.7 Baso % (Auto) 0.4 Neut # (Auto) 6.15 Lymph # (Auto) 6.5 H [place] # (Auto) 1.0 H Eos # (Auto) 0.2 Baso # (Auto) 0.1 Nucleated RBC % (auto) 0 Nucleated RBCs # 0.0 Sodium 138 Potassium 3.7 Chloride 100 Carbon Dioxide 28 Anion Gap 13.7 BUN 9 Creatinine 0.7 GFR Calculation 102.8 Glucose 117 H Calculated Osmolality 286 Calcium 8.7 Total Bilirubin 0.3 AST 20 ALT 22 Alkaline Phosphatase 84 Total Protein 6.6 Albumin 4.0 Globulin 2.6 Lipase 15 HCG, Qual Negative Urine Color Urine Appearance Urine pH Ur Specific Bimble Urine Protein Urine Glucose (UA) Urine Ketones Urine Blood Urine Nitrate Urine Bilirubin Urine Urobilinogen Ur Leukocyte Esterase Urine RBC Urine WBC Ur Squamous Epith Cells Amorphous Sediment Urine Bacteria 09/17/20 03:05 WBC RBC Hgb Hct MCV MCH MCHC RDW Plt Count MPV Neut % (Auto) Lymph % (Auto) [place] % (Auto) Eos % (Auto) Baso % (Auto) Neut # (Auto) Lymph # (Auto) [place] # (Auto) Eos # (Auto) Baso # (Auto) Nucleated RBC % (auto) Nucleated RBCs # Sodium Potassium Chloride Carbon Dioxide Anion Gap BUN Creatinine GFR Calculation Glucose Calculated Osmolality Calcium Total Bilirubin AST ALT Alkaline Phosphatase Total Protein Albumin Globulin Lipase HCG, Qual Urine Color Yellow Urine Appearance Hazy A Urine pH 7 Ur Specific Bimble 1.010 Urine Protein Neg Urine Glucose (UA) Norm Urine Ketones Negative Urine Blood Neg Urine Nitrate Negative Urine Bilirubin Neg Urine Urobilinogen Norm Ur Leukocyte Esterase 2+ H Urine RBC 0-4 H Urine WBC >100 H Ur Squamous Epith Cells 0-4 H Amorphous Sediment Not Reportable Urine Bacteria 2+ H Cardiac Studies: No Data to Display
[2020-09-17] MEDS: metroNIDAZOLE IV 500 MG/100 ML PREMIX 100 MG IV (13:19)
--- NOTE | 2020-09-17 14:04 | PM.OP ---
Operative Report Date of procedure: September 17, 2020 Pre-op Diagnosis: Acute calculus cholecystitis. Post-op diagnosis: same Procedure Done: Laparoscopic cholecystectomy. Specimens removed/disposition: Gallbladder. Surgeon: Frederick Marin Anesthesia: General Estimated blood loss (mL): 10 Complications: None. Condition: stable Disposition: PACU Procedure: The patient was brought to the Operating Room and was placed in a supine position on the Operating Room table. General endotracheal anesthesia was induced. The abdomen was prepped and draped in a sterile fashion. A small vertical incision was carried out in the inferior aspect of the umbilicus. Blunt dissection was carried out down to the fascia, which was grasped with a Lorri clamp. When I thought may have been an umbilical hernia turned out to be a lipomatous mass towards the right side of the umbilical region. This was excised. A stay suture of 0 Vicryl was placed on either side of the midline and the midline fascia was incised. The underlying peritoneum was opened bluntly and the Bhaskar port was placed directly into the peritoneal cavity and was held in place with the inflatable balloon. The peritoneal cavity was insufflated with carbon dioxide. The laparoscope was used to inspect the abdominal cavity. The gallbladder appeared to be somewhat distended and edematous. No other gross abnormalities were initially noted. A 5 millimeter port was placed in the epigastrium under direct vision. Two 5-millimeter ports were placed on the right side of the abdomen under direct vision. The gallbladder was grasped and was elevated. The patient was found to have some adhesions to the fundus and infundibular region of the gallbladder. These were all taken down using blunt dissection with some cautery to maintain hemostasis. Blunt dissection and hydrodissection were carried out in the infundibular region of the gallbladder and the cystic duct and cystic artery were identified. The gallbladder was partially removed from the liver bed using cautery and the spatula to confirm the anatomy before the structures were clipped and divided. The gallbladder was then removed from the liver bed using cautery and the spatula. The plane between the gallbladder and the liver was very edematous, very typical of acute cholecystitis. After the gallbladder had been removed from the liver bed, the laparoscope was moved to the epigastric port and the gallbladder was removed from the peritoneal cavity through the umbilical port site after being placed in a laparoscopic bag. The stay sutures of Vicryl were tied to each other at the umbilicus, closing the defect so that it was airtight. The perihepatic spaces were irrigated with saline and the liver bed was reinspected. No ongoing problems were seen. The remaining ports were removed from the abdominal wall and the pneumoperitoneum was evacuated. All skin incisions were closed using inverted interrupted sutures of 4-0 Vicryl. Benzoin and Steri-Strips were placed over the incisions and Band-Aids followed. The patient was taken to the Recovery Area in stable condition postoperatively.
--- NOTE | 2020-09-17 14:33 | SUR.PHASEI ---
1420- ORAL AIRWAY OUT, SIMPLE MASK AT 6LPM SAT 100%
--- NOTE | 2020-09-17 15:04 | PC.RESP ---
SMOKING CESSATION INFORMATION SENT TO PATIENT.
--- NOTE | 2020-09-17 15:15 | PC.PHAR ---
POST OP PAIN CONTAINED MULTIPLE OVERLAPS, DUPLICATE PRN REASON, AND RANGE DOSING WITHIN RANGE DOSING. DOSING COMMENTS CLARIFIED TO REFLECT PRN REASON ENTERED ON ORDER.
--- NOTE | 2020-09-17 15:34 | ANE.PACU2 ---
Inpatient post-anesthesia follow up: Airway intact: Yes Vital signs: Temperature 97.5 F Pulse Rate [Monito r] 76 Pulse Rate 74 Respiratory Rate 16 Blood Pressure [Ri ght Arm] 145/99 Blood Pressure 124/84 Pulse Oximetry 100 Oxygen Delivery Me thod Room Air Oxygen Flow Rate 8 Fraction of Inspir ed Oxygen Hydration adequate: Yes Nausea and vomiting: No Pain level: 2 Mental status: Baseline
[2020-09-17] MEDS: D5-NS 0.45% + KCL 20 mEq 20 MEQ/1,000 ML BAG 100 MEQ IV (15:52)
--- NOTE | 2020-09-17 18:54 | PM.DCS ---
Discharge Providers Date of Admission: 09/17/20 05:46 Date of Discharge: September 17, 2020 Attending Provider at Admission: Frederick Marin MD Attending Provider at Discharge: Frederick Marin MD Primary Care Provider: Florencio Small Jr, MD Diagnoses at Discharge Discharge Diagnosis (1) Acute cholecystitis due to biliary calculus: Status: Acute Reason for Visit Reason for Visit: Upper ABD pain Hospital Course Hospital Course This is a 25-year-old white female who developed epigastric and right upper quadrant pain the day prior to presentation to the emergency department. An ultrasound at that time showed cholelithiasis with a thickened gallbladder wall suggestive of acute cholecystitis. The patient was taken to the operating room on 09/17/2020 and a laparoscopic cholecystectomy was performed. She had changes very typical of acute calculus cholecystitis. By later in the afternoon the patient was already feeling much better and was anxious to go home. She was instructed with respect to wound care, activity limitations, diet, etc. Arrangements will be made for her to follow-up in my office as an outpatient. Physical Exam Narrative: EXAM NARRATIVE: Prior to discharge the patient was afebrile and her vital signs were within normal limits. Nursing had witnessed the patient up walking around in the halls. All of her wounds looked good. Discharge Data Data Completed and Pending: Completed Studies During Hospitalization Category Date Time Status CT abdomen pelvis w con* [id number] Urge nt Cat Scan 09/17/20 02:54 Completed US gall bladder 7 [id number] Urgent Ultrasound 09/17/20 04:31 Completed Pending at discharge Category Date Time Status ES surgery / GI i mages Routine Exams 09/17/20 13:02 Ordered Urine Culture Sta t Lab 09/17/20 03:05 Received Pathology: Surgic al [PTH] Routine Pth 09/17/20 14:00 Ordered Labs from last 24 hours 09/17/20 09/17/20 09/17/20 03:05 03:05 03:05 WBC RBC Hgb Hct MCV MCH MCHC RDW Plt Count MPV Neut % (Auto) Lymph % (Auto) [place] % (Auto) Eos % (Auto) Baso % (Auto) Neut # (Auto) Lymph # (Auto) [place] # (Auto) Eos # (Auto) Baso # (Auto) Nucleated RBC % (a uto) Nucleated RBCs # Sodium 138 Potassium 3.7 Chloride 100 Carbon Dioxide 28 Anion Gap 13.7 BUN 9 Creatinine 0.7 GFR Calculation 102.8 Glucose 117 H Calculated Osmolal ity 286 Calcium 8.7 Total Bilirubin 0.3 AST 20 ALT 22 Alkaline Phosphata se 84 Total Protein 6.6 Albumin 4.0 Globulin 2.6 Lipase 15 HCG, Qual Negative Urine Color Yellow Urine Appearance Hazy A Urine pH 7 Ur Specific Gravit y 1.010 Urine Protein Neg Urine Glucose (UA) Norm Urine Ketones Negative Urine Blood Neg Urine Nitrate Negative Urine Bilirubin Neg Urine Urobilinogen Norm Ur Leukocyte Tere ase 2+ H Urine RBC 0-4 H Urine WBC >100 H Ur Squamous Epith Cells 0-4 H Amorphous Sediment Not Reportable Urine Bacteria 2+ H 09/17/20 03:05 WBC 14.0 H RBC 4.65 Hgb 14.1 Hct 42.0 MCV 90.3 MCH 30.3 MCHC 33.6 RDW 12.5 Plt Count 334 MPV 10.5 H Neut % (Auto) 44.1 Lymph % (Auto) 46.6 [place] % (Auto) 6.9 Eos % (Auto) 1.7 Baso % (Auto) 0.4 Neut # (Auto) 6.15 Lymph # (Auto) 6.5 H Reynolds # (Auto) 1.0 H Eos # (Auto) 0.2 Baso # (Auto) 0.1 Nucleated RBC % (a uto) 0 Nucleated RBCs # 0.0 Sodium Potassium Chloride Carbon Dioxide Anion Gap BUN Creatinine GFR Calculation Glucose Calculated Osmolal ity Calcium Total Bilirubin AST ALT Alkaline Phosphata se Total Protein Albumin Globulin Lipase HCG, Qual Urine Color Urine Appearance Urine pH Ur Specific Gravit y Urine Protein Urine Glucose (UA) Urine Ketones Urine Blood Urine Nitrate Urine Bilirubin Urine Urobilinogen Ur Leukocyte Tere ase Urine RBC Urine WBC Ur Squamous Epith Cells Amorphous Sediment Urine Bacteria Vitals: Last Vital Signs Temp 97.8 F 09/17/20 16:00 Pulse 63 09/17/20 16:00 Resp 16 09/17/20 16:00 BP 118/85 09/17/20 16:00 Pulse Ox 100 09/17/20 16:00 Discharge Plan Discharge Patient Disposition: Home Condition: Stable Prescriptions: New hydrocodone-acetaminophen 5-325 mg tablet 1 - 2 tab PO Q5H PRN (Reason: pain) Qty: 30 RF: 0 Continued albuterol sulfate [Ventolin HFA] 90 mcg/actuation HFA aerosol inhaler 2 puff inhalation Q6H PRN (Reason: shortness of breath or wheezing) 10 Days Qty: 6.7 RF: 0 Held Tylenol Extra Strength 500 mg Tablet 1,000 mg PO PRN RF: 0 Hold Instructions: Resume on 09/22/20. Do not take any additional acetaminophen with the pain medication prescribed on discharge. Discontinued ibuprofen 200 mg Tablet 400 mg PO PRN RF: 0 Discharge Orders: Discharge Order (Routine); Ordered 09/17/20 Ordered By: Frederick Marin Referrals: Frederick Marin MD [Physician] - 09/30/20 11:00 am (Nursing: Please call Dr. Marin's office ([phone]) and make an appointment for the patient to be seen in 10-14 days.) Discharge Diet: Advance as tolerated Discharge Activity: Limit activity as instructed Patient Instructions: Hydrocodone/Acetaminophen (By mouth), Cholecystitis (GEN), Laparoscopic Cholecystectomy (DC), Opioid Safety Activity Restrictions/Additional Instructions: 1. Discharge to home today. 2. Appointment to see Dr. Marin in 10-14 days. 3. Bandages / bandaids off tomorrow, leave Steri-Strip(s) on, may shower. 4. [place] 5/325 1-2 tablets by mouth every 5 hours as needed for pain. #30, no refills. No lifting over 20 pounds, no repetitive bending or twisting, no strenuous pushing / pulling or other heavy activity. Ambulate regularly. May go up and down steps if needed. Discharge Attestations Time Spent in Discharge Care*: less than 30 min Quality Metrics Clinical Quality Measures During this hospital stay, did patient experience: None Coding Level of Care Code Acute Chg FW DC note Diagnoses Acute cholecystitis due to biliary calculus K80.00
== END 2020-09-17 17:22 | disposition home or self-care (01) ==
LOC: ER 05:44 → MEDSURG 06:01
PROVIDERS: Admitting Provider Surgery; Emergency Provider Emergency Medicine; PCP Pediatrics Adolescent Medicine; Visit Provider Surgery
PROC: 0FT44ZZ Resection of Gallbladder, Percutaneous Endoscopic Approach (ICD-10-PCS; CPT 47562; principal; 2020-09-17 12:00)
DX: K80.10 Calculus of gallbladder with chronic cholecystitis without obstruction (principal); K21.9 Gastro-esophageal reflux disease without esophagitis; F17.210 Nicotine dependence, cigarettes, uncomplicated
CPT/HCPCS: 47562; 74177; 76705; 80053; 81001; 83690; 84703; 85025; 87086; 88304; 96365; 96367; 96375; 99285; G0378; J0330; J0690; J0696; J1100; J1885; J2250; J2270; J2405; J2704; J2710; J3010; J3490; J7030; Q9967; S0030

== ENCOUNTER → 2021-02-19 08:59 | Outpatient (BNVA) | payer MEDICAID, SELFPAY | PROVIDERS: PCP Pediatrics Adolescent Medicine; Visit Provider Nurse Practitioner Women's Health | DX: Z11.3 Encounter for screening for infections with a predominantly sexual mode of transmission (principal) | CPT/HCPCS: 86592; 86803; 87491; 87591; 87661; 87806 ==

== ENCOUNTER → 2021-11-04 13:25 | Outpatient (BNVA) | payer MEDICAID, SELFPAY | PROVIDERS: Visit Provider Nurse Practitioner Women's Health | DX: N92.6 Irregular menstruation, unspecified (principal) | CPT/HCPCS: 81025; 84702 ==

== ENCOUNTER → 2021-11-18 07:49 | Outpatient (BNVA) | payer MEDICAID, SELFPAY | PROVIDERS: Visit Provider Obstetrics & Gynecology | DX: Z34.91 Encounter for supervision of normal pregnancy, unspecified, first trimester (principal); Z3A.09 9 weeks gestation of pregnancy | CPT/HCPCS: 76801; 76817 ==

== ENCOUNTER → 2021-12-06 19:07 | Outpatient (BNVA) | payer MEDICAID, SELFPAY | PROVIDERS: Visit Provider Family Medicine | DX: R11.2 Nausea with vomiting, unspecified (principal) | CPT/HCPCS: 81000 ==

== ENCOUNTER → 2021-12-07 10:57 | Outpatient (BNVA) | payer MEDICAID, SELFPAY | PROVIDERS: Visit Provider Obstetrics & Gynecology | DX: Z34.90 Encounter for supervision of normal pregnancy, unspecified, unspecified trimester (principal); Z34.81 Encounter for supervision of other normal pregnancy, first trimester; Z12.4 Encounter for screening for malignant neoplasm of cervix; Z34.92 Encounter for supervision of normal pregnancy, unspecified, second trimester | CPT/HCPCS: 80307; 84315; 85027; 86592; 86762; 86803; 86850; 86900; 87086; 87340; 87491; 87591; 87806; 88175 ==

== ENCOUNTER → 2021-12-09 08:12 | Outpatient (BNVA) | payer MEDICAID, SELFPAY | PROVIDERS: Visit Provider Obstetrics & Gynecology | DX: A53.0 Latent syphilis, unspecified as early or late (principal); Z86.19 Personal history of other infectious and parasitic diseases | CPT/HCPCS: 86780 ==

== ENCOUNTER → 2022-01-06 10:11 | Outpatient (BNVA) | payer MEDICAID, SELFPAY | PROVIDERS: Visit Provider Nurse Practitioner Women's Health | DX: O98.119 Syphilis complicating pregnancy, unspecified trimester (principal); R11.2 Nausea with vomiting, unspecified; K21.9 Gastro-esophageal reflux disease without esophagitis; Z86.19 Personal history of other infectious and parasitic diseases; Z3A.00 Weeks of gestation of pregnancy not specified | CPT/HCPCS: 82105; 82950; 84315 ==

== ENCOUNTER → 2022-01-07 11:40 | Outpatient (BNVA) | payer MEDICAID, SELFPAY | PROVIDERS: Visit Provider Student in an Organized Health Care Education/Training Program | DX: O98.119 Syphilis complicating pregnancy, unspecified trimester (principal) | CPT/HCPCS: 36415; 86592 ==

== ENCOUNTER → 2022-01-08 08:11 | Outpatient (BNVA) | payer MEDICAID, SELFPAY | PROVIDERS: Visit Provider Obstetrics & Gynecology | DX: Z34.90 Encounter for supervision of normal pregnancy, unspecified, unspecified trimester (principal) | CPT/HCPCS: 82951; 82952 ==

== ENCOUNTER → 2022-01-28 07:32 | Outpatient (BNVA) | payer MEDICAID, SELFPAY | PROVIDERS: Visit Provider Obstetrics & Gynecology | DX: Z34.92 Encounter for supervision of normal pregnancy, unspecified, second trimester (principal); Z3A.19 19 weeks gestation of pregnancy | CPT/HCPCS: 76805 ==

== ENCOUNTER → 2022-03-03 08:46 | Outpatient (BNVA) | payer MEDICAID, SELFPAY | PROVIDERS: Visit Provider Obstetrics & Gynecology | DX: Z34.92 Encounter for supervision of normal pregnancy, unspecified, second trimester (principal) | CPT/HCPCS: 76816 ==

== ENCOUNTER → 2022-03-23 11:20 | Outpatient (BNVA) | payer MEDICAID, SELFPAY | PROVIDERS: Visit Provider Obstetrics & Gynecology | DX: O09.92 Supervision of high risk pregnancy, unspecified, second trimester (principal); Z3A.00 Weeks of gestation of pregnancy not specified | CPT/HCPCS: 84315; 85027 ==

== ENCOUNTER → 2022-04-19 12:50 | Outpatient (BNVA) | payer MEDICAID, SELFPAY | PROVIDERS: Visit Provider Obstetrics & Gynecology | DX: O09.90 Supervision of high risk pregnancy, unspecified, unspecified trimester (principal); O24.419 Gestational diabetes mellitus in pregnancy, unspecified control; O09.92 Supervision of high risk pregnancy, unspecified, second trimester | CPT/HCPCS: 81000 ==

== ENCOUNTER → 2022-04-26 10:56 | Outpatient (BNVA) | payer MEDICAID, SELFPAY | PROVIDERS: Visit Provider Obstetrics & Gynecology | DX: Z34.90 Encounter for supervision of normal pregnancy, unspecified, unspecified trimester (principal); Z3A.00 Weeks of gestation of pregnancy not specified | CPT/HCPCS: 76819; 84315 ==

== ENCOUNTER → 2022-05-04 09:01 | Outpatient (BNVA) | payer MEDICAID, SELFPAY | PROVIDERS: Visit Provider Obstetrics & Gynecology | DX: Z34.92 Encounter for supervision of normal pregnancy, unspecified, second trimester (principal); Z3A.19 19 weeks gestation of pregnancy | CPT/HCPCS: 76819; 84315 ==

== ENCOUNTER → 2022-05-13 11:40 | Outpatient (BNVA) | payer MEDICAID, SELFPAY | PROVIDERS: Visit Provider Obstetrics & Gynecology | DX: O09.899 Supervision of other high risk pregnancies, unspecified trimester (principal); Z3A.00 Weeks of gestation of pregnancy not specified | CPT/HCPCS: 84315; 85025 ==

== ENCOUNTER → 2022-05-18 09:33 | Outpatient (BNVA) | payer MEDICAID, SELFPAY | PROVIDERS: Visit Provider Obstetrics & Gynecology | DX: O24.419 Gestational diabetes mellitus in pregnancy, unspecified control (principal); Z3A.00 Weeks of gestation of pregnancy not specified | CPT/HCPCS: 76816; 76819; 84315 ==

== ENCOUNTER → 2022-05-25 07:54 | Outpatient (BNVA) | payer MEDICAID, SELFPAY | PROVIDERS: Visit Provider Obstetrics & Gynecology | DX: O24.419 Gestational diabetes mellitus in pregnancy, unspecified control (principal); Z3A.00 Weeks of gestation of pregnancy not specified | CPT/HCPCS: 76819; 84315; 87081 ==

== ENCOUNTER → 2022-05-31 10:02 | Outpatient (BNVA) | payer MEDICAID, SELFPAY | PROVIDERS: Visit Provider Obstetrics & Gynecology | DX: O24.419 Gestational diabetes mellitus in pregnancy, unspecified control (principal); Z3A.00 Weeks of gestation of pregnancy not specified | CPT/HCPCS: 76819; 84315 ==

== ENCOUNTER → 2022-06-07 09:14 | Outpatient (BNVA) | payer MEDICAID, SELFPAY | PROVIDERS: Visit Provider Obstetrics & Gynecology | DX: O24.419 Gestational diabetes mellitus in pregnancy, unspecified control (principal); Z3A.00 Weeks of gestation of pregnancy not specified | CPT/HCPCS: 76819; 84315 ==

== ENCOUNTER 2022-06-11 09:25 | Outpatient (CLI) | payer MEDICAID, SELFPAY ==
[2022-06-11 09:25] VITALS: BMI 44.6
[2022-06-11 09:40] VITALS: BP 136/98; PULSE 94
[2022-06-11 09:59] VITALS: BP 122/87; PULSE 88
[2022-06-11 10:05] LABS: Basophils % 0.4 %; Eosinophils % 0.4 %; Hemoglobin 12.4 g/dL (11.5-15.3); Lymphocytes # 2.6 10^3/uL (0.8-4.8); Lymphocytes % 33.5 %; Mean Corpuscular HGB Conc 33.5 g/dL (30.0-36.0); Mean Corpuscular Hemoglobin 30.3 pg (28.0-34.0); Mean Corpuscular Volume 90.5 fl (81-99); Mean Platelet Volume 11.9 fL (7.4-10.4); Monocytes # 0.5 10^3/uL (0.2-0.9); Monocytes % 6.4 %; Neutrophils # 4.52 10^3/uL (1.8-7.7); Neutrophils % 58.9 %; Nucleated Red Blood Cells % 0 %; Platelet Count 271 10^3/cmm (130-400); Red Blood Count 4.09 10^6/uL (4.1-5.3); White Blood Count 7.7 10^3/uL (4.0-10.0)
[2022-06-11 10:14] VITALS: BP 122/84; PULSE 83
[2022-06-11 10:17] LABS: Alanine Aminotransferase 10 U/L (0-33); Albumin Level 3.3 g/dL (3.5-5.2); Alkaline Phosphatase 147 U/L (35-105); Anion Gap 18.9 (5-19); Aspartate Amino Transferase 16 U/L (0-32); Blood Urea Nitrogen 6 mg/dL (6-20); Calcium 8.9 mg/dL (8.5-10.5); Carbon Dioxide 19 mmol/L (22-29); Chloride 99 mmol/L (98-107); Globulin 3.3 g/dL (1.3-4.6); Glucose 106 mg/dL (65-115); Osmolality Calculated 274 mOsm/kg (285-295); Potassium 3.9 mmol/L (3.5-5.1); Sodium 133 mmol/L (136-145); Total Bilirubin 0.5 mg/dL (0.15-1.2); Total Protein 6.6 g/dL (6.6-8.7); Uric Acid 6.9 mg/dL (2.4-5.7)
[2022-06-11 10:26] LABS: Bilirubin Urine Neg (Negative); Blood Urine Neg (Negative); Glucose Urine UA Norm (Normal); Ketones Urine Negative (Negative); Leukocyte Esterase Urine Negative (Negative); Nitrate Urine Negative (Negative); Protein Urine Neg (Negative); Specific Gravity, Urine 1.005 (1.005-1.030); Squamous Epithelial Cell Urine 0-4 /hpf (0-5); Urine Appearance Clear (CLEAR); Urine Color Yellow (Yellow); Urobilinogen Urine Neg (Negative); pH Urine 7 (5-7)
[2022-06-11 10:27] LABS: Add Urine Culture? No
[2022-06-11 10:29] VITALS: BP 125/88; PULSE 76
[2022-06-11 10:30] LABS: Urine Creatinine 44 mg/dL (28-217); Urine Protein Random 5 mg/dL
[2022-06-11 10:42] LABS: UPRO/UCREAT Ratio 0.11 mg/mg CR
[2022-06-11 10:44] VITALS: BP 127/88; PULSE 81
== END 2022-06-11 11:05 | disposition home or self-care (01) ==
LOC: OPOB 09:30 → OBGYN 10:51
PROVIDERS: Absent Provider Obstetrics & Gynecology; Visit Provider Obstetrics & Gynecology
DX: O16.9 Unspecified maternal hypertension, unspecified trimester (principal); Z3A.00 Weeks of gestation of pregnancy not specified
CPT/HCPCS: 36415; 59025; 80053; 81001; 82570; 84156; 84550; 85025; 99211

== ENCOUNTER 2022-06-12 08:24 | Inpatient (IN) | payer MEDICAID, SELFPAY ==
[2022-06-12] VITALS (71 sets, daily range): BP systolic 124–177; BP diastolic 54–92; PULSE 71–122; RESP 16–17; TEMP 36.4; O2SAT 97–100; BMI 44.6
[2022-06-12] MEDS: miSOPROStol 100 mcg tablet 25 MCG VAGINAL ×2 (08:34→12:35)
--- NOTE | 2022-06-12 08:55 | PM.OPHPUD ---
Labor & Delivery H&P Update Date of Procedure: June 12, 2022 Date H&P Performed: 06/11/22 H&P update information: I have reviewed H&P completed within last 30 days, I have examined patient prior to procedure and No changes to prior documentation Admission Diagnosis: Preop diagnosis:
[2022-06-12 08:58] LABS: Basophils % 0.3 %; Eosinophils % 0.4 %; Hematocrit 35.3 % (37.0-47.0); Hemoglobin 11.8 g/dL (11.5-15.3); Lymphocytes # 2.3 10^3/uL (0.8-4.8); Lymphocytes % 30.8 %; Mean Corpuscular HGB Conc 33.4 g/dL (30.0-36.0); Mean Corpuscular Hemoglobin 30.7 pg (28.0-34.0); Mean Corpuscular Volume 91.9 fl (81-99); Mean Platelet Volume 11.9 fL (7.4-10.4); Monocytes # 0.4 10^3/uL (0.2-0.9); Monocytes % 5.1 %; Neutrophils # 4.66 10^3/uL (1.8-7.7); Neutrophils % 63.1 %; Nucleated Red Blood Cells % 0 %; Platelet Count 237 10^3/cmm (130-400); Red Blood Count 3.84 10^6/uL (4.1-5.3); Red Cell Distribution Width 13.1 % (12.1-15.1); White Blood Count 7.4 10^3/uL (4.0-10.0)
[2022-06-12 09:24] LABS: Glucose Point of Care 96 mg/dL (70-110)
[2022-06-12 13:19] LABS: Glucose Point of Care 74 mg/dL (70-110)
[2022-06-12] MEDS: lactated ringers 1,000 ML 999 ML IV ×2 (15:59→17:04)
[2022-06-12] MEDS: fentaNYL 50 mcg/mL INJ 2mL IVP (15:59)
--- NOTE | 2022-06-12 16:57 | ANES.PREANE2 ---
Pre-Anesthetic Assessment Height/Weight: Height 1.57 m Weight 110.677 kg Temp Pulse Resp BP O2 Del Method 97.5 F L 89 17 129/83 06/12/22 12:35 06/12/22 16:11 06/12/22 15:59 06/12/22 16:11 06/12/22 09:05 Preop Diagnosis: epidural Familial anesthetic complications: none Was Beta Khoa taken within 24 hours: N/A Was Clonidine taken within 24 hours: N/A Last Intake: 12:00 Social No alcohol and No tobacco (vape) Exam alert, oriented x 3, clear to auscultation bilaterally and regular rate & rhythm Airway Submandibular: within normal limits Cervical ROM: within normal limits Mallampati: Class I Dentition: full Pulmonary None reported CV/HEM None reported None reported Hepatic None reported GI Gastroesophageal Reflux Disease Metabolic Diabetes Mellitus (gestational, diet controlled) and Morbid Obesity Musc/sk None reported Neuropsych None reported Anesthetic Plan ASA status: 2 Anesthesia: Regional (specify below) (epidural) Risk of > 500 ml blood loss (7ml/kg in children): No Medications/Allergies Home Medications Medication Instructions Recorded Confirmed Last Taken Type acetaminophen 500 mg tablet 1,000 mg PO PRN 09/17/20 06/12/22 06/11/22 22:00 History (Tylenol Extra Strength) prenat.vits,carmelita,sbp-brqw-leevw 1 tab PO DAILY #90 tabs 11/04/21 06/12/22 06/11/22 09:00 Rx metoclopramide HCl 10 mg tablet 10 mg PO Q6H PRN nausea and 01/06/22 06/12/22 06/11/22 09:00 Rx (Reglan) vomiting #120 tabs blood sugar diagnostic (Blood #150 ea 01/11/22 06/11/22 Unknown Rx Glucose Test strips) blood-glucose meter #1 ea 01/11/22 06/11/22 Unknown Rx aspirin 81 mg tablet,delayed 81 mg PO DAILY 03/02/22 06/12/22 06/11/22 09:00 History release (Adult Low Dose Aspirin) lancets 28 gauge (FreeStyle #150 ea 05/04/22 06/11/22 Unknown Rx Lancets) omeprazole 40 mg capsule,delayed 40 mg PO DAILY #30 caps 05/04/22 06/12/22 06/11/22 09:00 Rx release Allergies Allergy/AdvReac Type Severity Reaction Status Date / Time No Known Allergies Allergy Verified 06/07/22 10:14 Current Medications Generic Name Dose Route Start Last Admin Trade Name Jarrell PRN Reason Stop Dose Admin Fentanyl 25 - 100 mcg 06/12/22 08:24 06/12/22 15:59 Fentanyl 50 Mcg/Ml Inj 2ml IVP 25 mcg Q1H PRN Administration SEVERE PAIN Lactated Ringer's 1,000 mls @ 999 mls/hr 06/12/22 08:24 06/12/22 15:59 Lactated Ringers IV 999 mls/hr .Q1H1M PRN Administration Per L&D Rescitation Protocol Dextrose/Lactated Ringer's 1,000 mls @ 125 mls/hr 06/12/22 08:30 06/12/22 16:33 Dextrose 5%-Lactated Ringers IV Not Given .Q8H CASSIA Insulin Human Lispro 0 unit 06/12/22 12:00 06/12/22 16:32 Insulin Lispro 100 Unit/1 Ml SUBCUT Not Given WM&BEDTIME CASSIA [facility] Medical History Gastroesophageal reflux disease 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--> referred to [facility] for tx Trichomonas infection Surgical History H/O wisdom tooth extraction (~09/2019) History of tonsillectomy and adenoidectomy Hx of cholecystectomy (~08/2020) Family History Grandmother Diabetes Heart disease Maternal grandmother Grandfather Diabetes Denies family history of Colon cancer Ovarian cancer Hyperlipidemia Breast cancer Family history of thyroid problem Hypertension Uterine cancer Stroke Female Reproductive History : 2 Data Anesthesia 06/12/22 08:45 Short CBC 06/12/22 Range/Units 08:45 WBC 7.4 (4.0-10.0) 10^3/uL Hgb 11.8 (11.5-15.3) g/dL Hct 35.3 L (37.0-47.0) % MCV 91.9 (81-99) fl Plt Count 237 (130-400) 10^3/cmm Neut % (Auto) 63.1 % Neut # (Auto) 4.66 (1.8-7.7) 10^3/uL Cardiac Studies: No Data to Display
--- NOTE | 2022-06-12 17:27 | ANES.PROC ---
Anesthesia Procedures Procedure/Date: 06/12/22 Epidural: Time Out Performed: Yes Consents Signed: Procedure Consent and NPO Consent Consent: requested by attending/covering physician, from patient, risks and benefits reviewed and patient agrees to proceed Lumbar Level: L3-L4 Epidural position: sitting Epidural procedure: sterile prep of area (betadine), 1% lidocaine to numb the area (3ml), 18 g needle, negative for paresthesia passed, neg for paresthesia, test dose given, 1.5% xylocaine 1:200k epi (3ml/2ml), 0.2% Ropivacaine bolus ml (5ml), placed PCEA, no systemic response, sterile dressing applied, L.U.D. no apparent complications and 0.2% Ropiavacaine @ mls/hr (13ml/hr)
--- NOTE | 2022-06-12 17:57 | PM.DELIVERY ---
Delivery Note: Date of delivery: June 12, 2022 Pre-delivery diagnoses: Term . Gestational diabetes. Hepatitis C. Syphilis in Post-delivery diagnoses: Same as above Procedure: Spontaneous vaginal delivery Delivering Physician: Martinez Rodriguez MD Estimated blood loss (mL): 200 Delivery: At 1723 I was called by nurse notifying the patient had received epidural and she was a 9 cm dilation +1 station. At 1733 she had a precipitous vaginal delivery. The patient delivered a viable full term infant weighing 2950 g with scores of 8 and 9 at one and five minutes, respectively. The infant was noted to have spontaneous cry and spontaneous movement of all four extremities. The was on the mother's abdomen where nursing personnel were in attendance. Cord blood sample have been obtained. The placenta delivered intact spontaneously and the uterus was explored. 20 units of Pitocin was placed in the IV bag to firm the uterus. Examination of the cervix and vaginal vault did not reveal any lacerations. A vaginal pack was then placed. Examination of the perineum showed no lacerations. The vaginal pack was then removed. The patient tolerated this procedure well, and recovered in L&D with her in their LDR room. All sponge and needle counts were correct. History History History 2 Term 1 0 Miscarriages/Ectopic 0 Living Children 1 Coding Level of Care Code Acute Code for Chg Fwd
[2022-06-12] MEDS: benzocaine-menthol 78 gm Canister 1 SPRAY TOPICAL (20:45)
[2022-06-12] MEDS: lanolin oint 7 gm 1 APPLIC TOPICAL (20:45)
[2022-06-12] MEDS: ibuprofen 800 mg tablet PO (20:46)
[2022-06-12 21:05] LABS: Glucose Point of Care 139 mg/dL (70-110)
[2022-06-13] MEDS: acetaminophen 325 mg Tablet 650 MG PO (02:05)
[2022-06-13 05:12] VITALS: BP 132/88; PULSE 75; RESP 18; TEMP 36.3; O2SAT 98
[2022-06-13 06:27] LABS: Hematocrit 36.4 % (37.0-47.0); Hemoglobin 11.9 g/dL (11.5-15.3); Mean Corpuscular HGB Conc 32.7 g/dL (30.0-36.0); Mean Corpuscular Hemoglobin 30.4 pg (28.0-34.0); Mean Corpuscular Volume 93.1 fl (81-99); Mean Platelet Volume 12.3 fL (7.4-10.4); Platelet Count 241 10^3/cmm (130-400); Red Blood Count 3.91 10^6/uL (4.1-5.3); Red Cell Distribution Width 13.2 % (12.1-15.1); White Blood Count 12.1 10^3/uL (4.0-10.0)
[2022-06-13] MEDS: HYDROcodone-acetaminophen 5-325 mg Tablet PO (06:43)
--- NOTE | 2022-06-13 07:57 | ANE.PACU2 ---
Inpatient post-anesthesia follow up: Airway intact: Yes Vital signs: Temperature 97.4 F Pulse Rate 75 Respiratory Rate 18 Blood Pressure 132/88 Pulse Oximetry 98 Oxygen Delivery Me thod Room Air Oxygen Flow Rate Fraction of Inspir ed Oxygen Hydration adequate: Yes Nausea and vomiting: No Pain level: 2 Mental status: Baseline
[2022-06-13 08:00] VITALS: BP 117/82; PULSE 93; TEMP 36.8; O2SAT 97
[2022-06-13] MEDS: ibuprofen 800 mg tablet PO ×2 (10:21→15:54)
[2022-06-13] MEDS: prenatal vitamin Capsule 1 CAP PO (10:21)
[2022-06-13] MEDS: docusate sodium 100 mg Capsule PO (10:21)
[2022-06-13 10:25] LABS: Glucose Point of Care 103 mg/dL (70-110)
[2022-06-13 14:30] VITALS: BP 125/87; PULSE 85; TEMP 36.7; O2SAT 99
[2022-06-13 16:51] LABS: Rapid Plasma Reagin Syphilis Reactive (Nonreactive)
--- NOTE | 2022-06-13 17:58 | PM.OBGYDC ---
Discharge Providers MARKETING AND PROMOTIONS MANAGER Date of Admission: 06/12/22 08:24 Date of Discharge: 06/13/22 Attending Provider at Admission: Martinez Rodriguez MD Attending Provider at Discharge: Martinez Rodriguez MD Primary MARKETING AND PROMOTIONS MANAGER: Martinez Rodriguez MD Diagnoses at Discharge Discharge Diagnosis (1) Gestational diabetes: Status: Acute (2) Syphilis affecting , antepartum: Status: Acute (3) Term delivered: Status: Acute Reason for Visit Reason for Visit: induction of labor Hospital Course Hospital Course established patient with an uncertain LMP of 09/04/2021, LICO 06/19/2022, based on 9 week ultrasound, placing her at 39 weeks. complicated by gestational diabetes, syphilis (treated) and hepatitis C, was admitted for induction. She had a rapid progression of labor, had a spontaneous precipitous vaginal delivery without complications. overnight observation was uneventful. She is afebrile hemodynamically stable day 1. Tolerating diet well. Ambulating without difficulty. Glucose within normal limits. Patient was counseled to follow-up in 2 weeks for 2 hours glucose tolerance test. She was also counseled regarding pelvic rest for 6 weeks (no sex, no tampons, no vaginal douches). Return to the emergency room if any fever, increased bleeding or pain. Information Peripartum Data: Infant Delivery Method: Vaginal Physical Exam Narrative: GA; alert and oriented x 3 HEENT: normal Breasts: engorged Nipples - skin intact Lungs; clear to auscultation Heart: regular rhythm, no murmurs. Abd: Appropriately tender. BS+. Uterine fundus below umbilicus. No Fundal Tenderness. Perineum: normal lochia. Extremities: no edema, no cyanosis, no tenderness. History History History 2 Term 1 0 Miscarriages/Ectopic 0 Living Children 1 Discharge Data Studies Completed and Pending Laboratory Results WBC 12.1 10^3/uL (4.0-10.0) H 06/13/22 06:00 RBC 3.91 10^6/uL (4.1-5.3) L 06/13/22 06:00 Hgb 11.9 g/dL (11.5-15.3) 06/13/22 06:00 Hct 36.4 % (37.0-47.0) L 06/13/22 06:00 MCV 93.1 fl (81-99) 06/13/22 06:00 MCH 30.4 pg (28.0-34.0) 06/13/22 06:00 MCHC 32.7 g/dL (30.0-36.0) 06/13/22 06:00 RDW 13.2 % (12.1-15.1) 06/13/22 06:00 Plt Count 241 10^3/cmm (130-400) 06/13/22 06:00 MPV 12.3 fL (7.4-10.4) H 06/13/22 06:00 Neut % (Auto) 63.1 % 06/12/22 08:45 Lymph % (Auto) 30.8 % 06/12/22 08:45 [place] % (Auto) 5.1 % 06/12/22 08:45 Eos % (Auto) 0.4 % 06/12/22 08:45 Baso % (Auto) 0.3 % 06/12/22 08:45 Neut # (Auto) 4.66 10^3/uL (1.8-7.7) 06/12/22 08:45 Lymph # (Auto) 2.3 10^3/uL (0.8-4.8) 06/12/22 08:45 [place] # (Auto) 0.4 10^3/uL (0.2-0.9) 06/12/22 08:45 Eos # (Auto) 0.0 10^3/uL (0.0-0.8) 06/12/22 08:45 Baso # (Auto) 0.0 10^3/uL (0.0-0.1) 06/12/22 08:45 Nucleated RBC % (auto) 0 % 06/12/22 08:45 Nucleated RBCs # 0.0 /100WBC 06/12/22 08:45 POC Glucose 103 mg/dL (70-110) 06/13/22 10:17 RPR Reactive (Nonreactive) H 06/13/22 15:58 Vitals Last Vital Signs Temp 98.0 F 06/13/22 14:30 Pulse 85 06/13/22 14:30 Resp 18 06/13/22 05:12 BP 125/87 06/13/22 14:30 Pulse Ox 99 06/13/22 14:30 O2 Del Method 06/13/22 14:30 Discharge Plan Discharge Patient Disposition: Home Condition: Stable Prescriptions: New acetaminophen 325 mg capsule 325 mg PO Q4H PRN (Reason: fever or pain) Qty: 60 0RF ibuprofen 800 mg tablet 800 mg PO TID PRN (Reason: pain) Qty: 60 0RF docusate sodium [Colace] 100 mg capsule 100 mg PO BID Qty: 60 0RF Continued metoclopramide HCl [Reglan] 10 mg tablet 10 mg PO Q6H PRN (Reason: nausea and vomiting) Qty: 120 0RF omeprazole 40 mg capsule,delayed release(DR/EC) 40 mg PO DAILY Qty: 30 3RF (DME) lancets [FreeStyle Lancets] 28 gauge misc See Rx Instructions .Route Qty: 150 2RF Rx Instructions: As directed prenat.vits,carmelita,[id number] Tablet 1 tab PO DAILY Qty: 90 3RF aspirin [Adult Low Dose Aspirin] 81 mg tablet,delayed release (DR/EC) 81 mg PO DAILY (DME) blood-glucose meter Misc See Rx Instructions .Route Qty: 1 0RF Rx Instructions: As directed (DME) Blood Glucose Test Strip See Rx Instructions .Route Qty: 150 4RF Rx Instructions: As directed acetaminophen [Tylenol Extra Strength] 500 mg Tablet 1,000 mg PO PRN Hold Instructions: Resume on 09/22/20. Do not take any additional acetaminophen with the pain medication prescribed on discharge. Discharge Orders: Discharge Order (Routine); Ordered 06/13/22 Ordered By: Martinez Rodriguez Referrals: Martinez Rodriguez MD [Physician] - 2 weeks (for 2h GTT) Discharge Diet: Usual diet Discharge Activity: Limit activity as instructed Patient Instructions: Caring for Your Baby (GEN), Bleeding (GEN), Vaginal Delivery (GEN), Your Bancroft's Appearance (GEN), Opioid Safety Activity Restrictions/Additional Instructions: 1. Please call [facility] on next working day to make your appointment in 2 weeks 2h GTT and 6 weeks postpaartum. 2. Please stay home until you come back to the clinic on first post-operative check up. 3. Please follow instructions on your medications CAREFULLY. 4. If you have abdominal incision, do not cover it unless dressing is necessary because of drainage. OK to shower, but avoid bath. Leave steri-strips until they fall off. If they are still on one week after surgery, you may remove them. 5. If you had vaginal surgery or vaginal repair, Dr. Rodriguez may instruct you to take SITZ bath. 6. Yellow, blood tinged odorous vaginal discharge is usually normal after hysterectomy or vaginal surgeries. 7. No sexual intercourse, tampons, or douches until you are completely released from the post-operative care. 8. Avoid constipation by eating right and maybe using some Metamucil or Milk of Magnesia. 9. All prescription refills are given during the working hours. Please do no wait till it runs out. Call the clinic at [phone] before your medication runs out. The clinic will get in touch with your doctor to prescribe medications if necessary. 10. Please remain within 40 mile radius from our hospital because emergencies do happen now and then during the post-operative period. 11. If you have stairs at home, take one step at a time slowly and minimize the number of trips. It helps to stay in one floor for the next few days. No lifting except what you can lift by one hand until you are released from the post-operative care. 12. Driving is discouraged until you are well healed. It may be 3-4 weeks before you feel strong enough to drive. You should be able to turn and look through the rear window without pain and you should be able to push the brake pedal very hard without pain before you drive. No fast rules, but SAFETY should be your primary concern. DO NOT drive if you are on sedating medications such as narcotics. 13. Call the clinic (during working hours) to make urgent appointment or go to the Emergency room, if any of the following occurs: i. Vaginal bleeding becomes heavy, more than a period. ii. Incision becomes red and sore, or drains pus. iii. Your temperature is over 100.4 or you have chill. iv. IV site becomes red and swollen (a little ``knot?? is usually OK) v. Persistent nausea and vomiting vi. Persistent constipation or diarrhea vii. Rash or allergic reaction to medications. Discharge Attestations MARKETING AND PROMOTIONS MANAGER Time Spent in Discharge Care*: greater than 30 min Coding Level of Care Code Acute Code for Chg Fwd Diagnoses Gestational diabetes O24.419 Syphilis affecting , antepartum O98.119 Term delivered O80
[2022-06-13 19:45] VITALS: BP 137/87; PULSE 88; RESP 18; TEMP 36.7; O2SAT 98
== END 2022-06-13 20:08 | disposition home or self-care (01) | DRG 806 ==
LOC: OPOB 08:55 → OBGYN 08:56
PROVIDERS: Absent Provider Obstetrics & Gynecology; Admitting Provider Obstetrics & Gynecology; Visit Provider Obstetrics & Gynecology
DX: O99.334 Smoking (tobacco) complicating childbirth (principal); O98.12 Syphilis complicating childbirth; Z37.0 Single live birth; O98.42 Viral hepatitis complicating childbirth; F17.290 Nicotine dependence, other tobacco product, uncomplicated; O99.214 Obesity complicating childbirth; E66.01 Morbid (severe) obesity due to excess calories; A53.9 Syphilis, unspecified; B19.20 Unspecified viral hepatitis C without hepatic coma; O24.420 Gestational diabetes mellitus in childbirth, diet controlled; Z3A.39 39 weeks gestation of pregnancy; O75.89 Other specified complications of labor and delivery; K21.9 Gastro-esophageal reflux disease without esophagitis
CPT/HCPCS: 36415; 36416; 59025; 59409; 82962; 85025; 85027; 86592; 96374; 99211; J2795; J3010; J7120

== ENCOUNTER 2022-06-18 15:02 | Outpatient (CLI) | payer MEDICAID, SELFPAY ==
[2022-06-21 14:20] LABS: RPR w(Moniotor) w/REFL Titer REACTIVE (NON-REACTIVE)
== END 2022-06-18 15:03 | disposition home or self-care (01) ==
PROVIDERS: Visit Provider Pediatrics
DX: Z20.2 Contact with and (suspected) exposure to infections with a predominantly sexual mode of transmission (principal)
CPT/HCPCS: 36415; 86592

== ENCOUNTER 2022-06-29 08:12 | Outpatient (CLI) | payer MEDICAID, SELFPAY ==
[2022-06-29 08:58] LABS: Glucose Fasting 94 mg/dL (74-109)
[2022-06-29 11:15] LABS: Glucose 2 Hour PP 86 mg/dL
== END 2022-06-29 08:13 | disposition home or self-care (01) ==
LOC: LAB 08:16
PROVIDERS: Visit Provider Obstetrics & Gynecology
DX: Z39.2 Encounter for routine postpartum follow-up (principal)
CPT/HCPCS: 36415; 82947

== ENCOUNTER → 2022-07-23 10:35 | Outpatient (BNVA) | payer MEDICAID, SELFPAY | PROVIDERS: Visit Provider Obstetrics & Gynecology | DX: Z30.9 Encounter for contraceptive management, unspecified (principal) | CPT/HCPCS: 81025 ==

== ENCOUNTER → 2023-01-06 14:06 | Outpatient (BNVA) | payer MEDICAID, SELFPAY | PROVIDERS: Visit Provider Student in an Organized Health Care Education/Training Program | DX: O98.119 Syphilis complicating pregnancy, unspecified trimester | CPT/HCPCS: 36415; 86592 ==

== ENCOUNTER → 2024-03-16 11:06 | Outpatient (BNVA) | payer MEDICAID, SELFPAY | PROVIDERS: Visit Provider Obstetrics & Gynecology | DX: N91.2 Amenorrhea, unspecified (principal) | CPT/HCPCS: 83001; 84146; 84702; 85025 ==

== ENCOUNTER 2024-04-08 07:06 | Emergency (ER) | payer MEDICAID, SELFPAY ==
[2024-04-08 07:14] VITALS: BP 135/89; PULSE 115; RESP 18; TEMP 36.8; O2SAT 99; BMI 48.2
[2024-04-08 08:27] LABS: Rapid Strep A Test Negative (Negative)
[2024-04-08 08:50] LABS: Covid PCR NEGATIVE (Negative); Influenza A NEGATIVE (Negative); Influenza B NEGATIVE (Negative); Respiratory Syncytial Virus Ce NEGATIVE (Negative)
[2024-04-08 08:54] VITALS: BP 153/96; PULSE 100; RESP 18; O2SAT 96
--- NOTE | 2024-04-08 10:31 | W.ED.URI ---
HPI - URI/Sore Throat General: Chief Complaint: Upper Respiratory Infection Stated Complaint: Trouble breathing Time Seen by Provider: 04/08/24 07:42 History of Present Illness: 28-year-old female presents emergency department with 2 days of illness. Patient reports her son has strep throat. She has had some inflammation swelling and redness of her uvula. It was particularly noticeable this morning but is slowly gotten better as the morning has gone on. She has not had any fever that she can tell. She has an occasional cough but she thinks it is more irritation from her uvula. No neck pain stiffness or swelling. No trouble doing range of motion of her neck. No skin, or GI symptoms. Associated symptoms: Deny abdominal pain, chills, chest pain, diarrhea, fever(s), headache(s), nausea or vomiting Related Data Home Medications Medication Instructions Recorded Confirmed etonogestrel 68 mg subdermal 1 implant subdermal .[id number] 03/16/24 04/08/24 implant (Nexplanon) miconazole nitrate 2 % topical 1 applic topical DAILY 04/08/24 04/08/24 cream Previous Rx's Medication Instructions Recorded ibuprofen 800 mg tablet 800 mg PO TID PRN pain #60 tabs 03/21/24 Allergies Allergy/AdvReac Type Severity Reaction Status Date / Time No Known Allergies Allergy Verified 03/16/24 09:05 Review of Systems General: Reports: 10 or more systems reviewed and unremarkable except in HPI and below Const: Denies: fever(s), chills or body aches Eyes: Denies: change in vision Card: Denies: chest pain, edema or syncope Resp: Denies: dyspnea or productive cough GI: Denies: abdominal pain, nausea, vomiting or diarrhea : Denies: flank pain, dysuria or urinary frequency Musc: Denies: neck pain, back pain, extremity pain or extremity swelling Skin/Breast: Denies: rash or erythema Neuro: Denies: headache(s), numbness in extremities, weakness in extremities, lack of coordination or difficulty walking PFSH ED PFSH: Medical History Trichomonas infection Gastroesophageal reflux disease 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--> referred to [facility] for tx Surgical History Hx of cholecystectomy (~08/2020) H/O wisdom tooth extraction (~09/2019) History of tonsillectomy and adenoidectomy Family History Grandmother Diabetes Heart disease Maternal grandmother Grandfather Diabetes Denies family history of Colon cancer Ovarian cancer Hyperlipidemia Breast cancer Family history of thyroid problem Hypertension Uterine cancer Stroke Social History Smoking and tobacco/nicotine status: current every day tobacco/nicotine user Substance/Drug Use: never Physical Exam Const: COMMON NORMALS: no limitations, alert and well nourished EXAM LIMITATIONS: no altered mental status HENMT: COMMON NORMALS: normocephalic, atraumatic and external ears normal HEAD & SCALP: normocephalic and atraumatic EXTERNAL EAR: Yes external ears normal MOUTH: no muffled voice OTHER: Soft tissues of the throat are unremarkable and palpation and visual inspection. Trachea is midline. Normal phonation. There is erythema of the uvula. There is no uvular deviation. No signs of peritonsillar abscess. The uvula is very mildly edematous. There is ample room around the uvula as it is short and the patient has plenty of volume to breathe around it. Tongue appears normal. Eye: COMMON NORMALS: EOMs intact bilaterally, conjunctivae normal and no scleral icterus CONJUNCTIVA: Yes conjunctivae normal Neck/C-Spine: GENERAL: Yes normal visual inspection and Yes trachea midline Resp: COMMON NORMALS: normal respiratory effort, No use of accessory muscles and clear to auscultation bilaterally AUSCULTATION: clear to auscultation bilaterally Cardio: COMMON NORMALS: regular rate RATE: regular rate GI: COMMON NORMALS: Soft to palpation and non-tender PALPATION: Yes Soft to palpation and No Guarding due to palpation present (GI) Extremity: COMMON NORMALS: normal to inspection Neuro: COMMON NORMALS: moves all extremities, no focal motor deficits and no sensory deficits noted SENSORIUM/ORIENTATION: Yes alert SPEECH: speech normal Psych: COMMON NORMALS: mental status grossly normal, Normal thought process present, cooperative, normal affect and speech normal SPEECH: Yes normal speech THOUGHT PROCESS: Normal thought process present Skin: COMMON NORMALS: no rashes or lesions noted, turgor normal and no jaundice GENERAL SKIN EXAM: no rashes or lesions noted and turgor normal Course Vital Signs: Vital signs: Vital Signs Temperature 98.3 F 04/08/24 07:14 Pulse Rate 100 04/08/24 08:54 Respiratory Rate 18 04/08/24 08:54 Blood Pressure 153/96 04/08/24 08:54 Pulse Oximetry 96 04/08/24 08:54 Oxygen Delivery Me thod Room Air 04/08/24 08:54 MDM - URI/Sore Throat Medical Decision Making Uvulitis. Viral versus bacterial. No signs of peritonsillar abscess and no clinical signs of deep space infection. Rapid strep a was negative. Culture will be obtained. COVID flu and RSV were negative. Patient is well-appearing and nontoxic. She was originally tachycardic but her heart rate came down into the 90s. Patient can be discharged after a dose of dexamethasone. Lab Data Laboratory Results Coronavirus (PCR) Negative (Negative) 04/08/24 08:02 Influenza A (PCR) Negative (Negative) 04/08/24 08:02 Influenza Type B (PCR) Negative (Negative) 04/08/24 08:02 RSV (PCR) Negative (Negative) 04/08/24 08:02 Group A Strep Rapid Negative (Negative) 04/08/24 08:02 No radiology studies performed this visit Discharge Plan Discharge Patient Disposition: Home Clinical Impression: Uvulitis Condition: Stable Prescriptions: No Action Nexplanon 68 mg implant 1 implant subdermal .[id number] ibuprofen 800 mg tablet 800 mg PO TID PRN (Reason: pain) Qty: 60 1RF miconazole nitrate 2 % cream 1 applic TOPICAL DAILY Discharge Orders: Discharge ED (Routine); Ordered 04/08/24 Ordered By: Andrew Archuleta Discharge Diet: Advance as tolerated Patient Instructions: Uvulitis (ED) Activity Restrictions/Additional Instructions: Return to the emergency department if you have trouble breathing or swallowing. If you have high fever, neck swelling, or trouble performing range of motion of your neck then you also need to be evaluated. Your rapid strep was negative. A culture will be grown and if it is positive you will be called. You have been given Decadron steroid. Use Tylenol alternating with ibuprofen every 3 hours as needed for pain or fever. Coding Level of Care Code ED Consulting Psychologist for Dexter Truong
[2024-04-08] MEDS: dexamethasone 10 mg/mL INJ PO (10:43)
[2024-04-08 10:46] VITALS: BP 123/92; PULSE 101; O2SAT 100
== END 2024-04-08 10:47 | disposition home or self-care (01) ==
PROVIDERS: Emergency Provider Emergency Medicine
DX: K12.2 Cellulitis and abscess of mouth (principal); Z11.52 Encounter for screening for COVID-19; Z72.0 Tobacco use
CPT/HCPCS: 87081; 87637; 87880; 99283; J1100

== ENCOUNTER → 2024-04-23 11:07 | Outpatient (BNVA) | payer MEDICAID, SELFPAY | PROVIDERS: Visit Provider Obstetrics & Gynecology | DX: O26.893 Other specified pregnancy related conditions, third trimester (principal); N83.202 Unspecified ovarian cyst, left side; Z3A.39 39 weeks gestation of pregnancy | CPT/HCPCS: 76830 ==

== ENCOUNTER 2024-07-31 14:27 | Emergency (ER) | payer SELFPAY ==
[2024-07-31 14:33] VITALS: BP 138/86; PULSE 114; RESP 20; TEMP 36.9; O2SAT 98
[2024-07-31 16:21] VITALS: PULSE 102; O2SAT 99
--- NOTE | 2024-07-31 16:57 | W.ED.ALLEREA ---
HPI - Allergic Reaction General: Chief complaint: Allergic Reaction Stated complaint: allergic reaction Time Seen by Provider: 07/31/24 15:47 History of Present Illness: HPI narrative: 28-year-old female past medical history of anxiety is presenting with allergic reaction, she felt like she was exposed to some fumes of a white work cleaner and started breaking out in hives itchy rash and felt some throat tightening so she was concerned she may be having a right allergic reaction. She took Benadryl 50 mg and while she has been waiting here for the past 2 hours her all her symptoms are resolved and she feels markedly improved. She denies any shortness of breath no nausea no vomiting no diarrhea no dizziness no syncope. She has a history of allergic reaction to Borax denies any other allergies. She feels markedly well. Feels like she is ready to go home. Associated symptoms: Deny abdominal pain, nausea or vomiting Related Data Home Medications ?Medication ?Instructions ?Recorded ?Confirmed etonogestrel 68 mg subdermal 1 implant subdermal .[id number] 03/16/24 07/31/24 implant (Nexplanon) Previous Rx's ?Medication ?Instructions ?Recorded ibuprofen 800 mg tablet 800 mg PO TID PRN pain #60 tabs 03/21/24 Allergies Allergy/AdvReac Type Severity Reaction Status Date / Time No Known Allergies Allergy Verified 05/21/24 10:23 Review of Systems Const: Denies: fever(s), chills or body aches Eyes: Denies: change in vision or blurry vision ENMT: Reports: throat pain Card: Denies: chest pain, palpitations, irregular heart rhythm or edema Resp: Denies: dyspnea, productive cough or non-productive cough GI: Denies: abdominal pain, nausea, vomiting or hematemesis : Denies: difficulty voiding Musc: Denies: neck pain, back pain or extremity pain Skin/Breast: Reports: rash and pruritus Neuro: Denies: headache(s) PFSH ED PFSH: Medical History Trichomonas infection Gastroesophageal reflux disease 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--> referred to [facility] for tx Surgical History Hx of cholecystectomy (~08/2020) H/O wisdom tooth extraction (~09/2019) History of tonsillectomy and adenoidectomy Family History Grandmother Diabetes Heart disease Maternal grandmother Grandfather Diabetes Denies family history of Colon cancer Ovarian cancer Hyperlipidemia Breast cancer Family history of thyroid problem Hypertension Uterine cancer Stroke Social History Smoking and tobacco/nicotine status: current every day tobacco/nicotine user Substance/Drug Use: never Physical Exam Const: COMMON NORMALS: no acute distress, patient oriented x3 and alert GENERAL APPEARANCE: cooperative HENMT: COMMON NORMALS: normocephalic and atraumatic HEAD & SCALP: normocephalic and atraumatic Eye: COMMON NORMALS: Equal, round and reactive pupils present and conjunctivae normal CONJUNCTIVA: Yes conjunctivae normal PUPIL: Yes Equal, round and reactive pupils present Neck/C-Spine: COMMON NORMALS: supple and no JVD Lymph: LYMPHATIC: no lymphadenopathy noted Resp: COMMON NORMALS: normal respiratory effort, No use of accessory muscles and clear to auscultation bilaterally AUSCULTATION: clear to auscultation bilaterally, no crackles, no rales, no rhonchi and no wheezes Cardio: COMMON NORMALS: no JVD, regular rate and regular rhythm RATE: regular rate RHYTHM: regular rhythm GI: COMMON NORMALS: Normal to inspection, nondistended, normoactive bowel sounds present, Soft to palpation and non-tender PALPATION: Yes Soft to palpation : COMMON NORMALS: Yes no CVA tenderness BLADDER/KIDNEY EXAM: Yes no CVA tenderness Back/Pelvis: COMMON NORMALS: no CVA tenderness Extremity: COMMON NORMALS: normal to inspection Neuro: COMMON NORMALS: patient oriented x3 SENSORIUM/ORIENTATION: Yes alert Psych: COMMON NORMALS: mental status grossly normal Skin: COMMON NORMALS: no rashes or lesions noted GENERAL SKIN EXAM: no rashes or lesions noted Course Vital Signs: Vital signs: Vital Signs Temperature 98.4 F 07/31/24 14:33 Pulse Rate 102 H 07/31/24 16:21 Respiratory Rate 20 H 07/31/24 14:33 Blood Pressure 138/86 07/31/24 14:33 Pulse Oximetry 99 07/31/24 16:21 Oxygen Delivery Me thod Room Air 07/31/24 14:33 MDM - Allergic Reaction Medical Decision Making Patient is presenting with what sounds like a minor allergic reaction possibly to a cleaning product that has now resolved with just Benadryl. She is asymptomatic at this time and is well-appearing with no evidence of rash at this time. She feels improved and would like to go home. I do not think she needs a course of steroids but I did discuss Benadryl as needed. 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 No radiology studies performed this visit Discharge Plan Discharge Patient Disposition: Home Condition: Stable Prescriptions: No Action Nexplanon 68 mg implant 1 implant subdermal .[id number] ibuprofen 800 mg tablet 800 mg PO TID PRN (Reason: pain) Qty: 60 1RF Discharge Orders: Discharge ED (Routine); Ordered 07/31/24 Ordered By: Mery Jaimes Referrals: pcp [Other] (Follow up with your pcp) Patient Instructions: Allergic Reaction Print Language: Albanian Coding Level of Care Code ED Managing Member for Dexter Truong
[2024-07-31 17:29] VITALS: BP 134/87; PULSE 103; O2SAT 99
== END 2024-07-31 17:29 | disposition home or self-care (01) ==
PROVIDERS: Emergency Provider Emergency Medicine
DX: T78.40XA Allergy, unspecified, initial encounter (principal); X58.XXXA Exposure to other specified factors, initial encounter; Z72.0 Tobacco use
CPT/HCPCS: 99282